=== PATIENT | male | born 1945 | race Hispanic/Latino ===

== ENCOUNTER 2018-02-01 20:40 | Observation (INO) | payer MEDICARE ==
[2018-02-01] MEDS ORDERED: hydrALAZINE 20 MG/ML VIAL ONE (21:39)
[2018-02-01 21:57] LABS: ALT (SGPT) 9 U/L (8-55); AST (SGOT) 21 U/L (5-34); Albumin 3.4 g/dL (3.4-4.8); Alkaline Phosphatase 85 U/L (40-150); Anion Gap 11 mmol/L (10-20); BUN (Urea Nitrogen) 4 mg/dL (8.4-25.7); Bilirubin, Total 0.5 mg/dL (0.2-1.2); Calc. Creatinine Clearance 0 mL/min (70-130); Calcium 8.2 mg/dL (7.8-10.44); Carbon Dioxide 31 mmol/L (23-31); Chloride 98 mmol/L (98-107); Estimated GFR-MDRD 33; Globulin 3.2 g/dL (2.4-3.5); Glucose 129 mg/dL (83-110); Potassium 3.2 mmol/L (3.5-5.1); Protein, Total 6.6 g/dL (5.8-8.1); Sodium 137 mmol/L (136-145)
[2018-02-01 21:58] LABS: #Eosinphils 0.2 thou/uL (0.0-0.7); #Lymphocytes 0.7 thou/uL (1.20-3.40); #Monocytes 0.4 thou/uL (0.11-0.59); #Neutrophils 3.3 thou/uL (1.40-6.50); %Eosinophils 3.4 % (0.0-10.0); %Lymphocytes 15.4 % (21.0-51.0); %Monocytes 8.9 % (0.0-10.0); %Neutrophils 71.2 % (42.0-75.0); Mean Corpuscular HGB CONC 33.4 g/dL (32.0-36.0); Mean Corpuscular Hemoglobin 32.5 pg (27.0-31.0); Mean Corpuscular Volume 97.4 fL (78.0-98.0); Mean Platelet Volume 9.7 fL (7.4-10.4); PLT Morphology Comment Appears Decreased; Platelet Count 56 thou/uL (130-400); RBC Distribution Width 12.9 % (11.5-14.5); RBC Morphology Normal; Red Blood Cell (RBC) Count 3.06 mill/uL (4.70-6.10); White Blood Cell (WBC) Count 4.7 thou/uL (4.8-10.8)
[2018-02-01] MEDS ORDERED: Labetalol HCl 100 MG/20 ML VIAL ONE (22:23)
--- NOTE | 2018-02-01 23:09 | RAD ---
SINGLE VIEW OF THE CHEST: 02/01/18 COMPARISON: 08/08/16 HISTORY: High blood pressure and altered mental status. FINDINGS: Single view of the chest shows an enlarged but stable cardiomediastinal silhouette. There is a right sided dialysis catheter with its tip in the superior vena cava. There is no evidence of consolidation , mass, or pleural effusion. Degenerative changes are seen in the spine. IMPRESSION: No evidence of acute cardiopulmonary disease. POS: [facility]
[2018-02-01 23:14] LABS: CKMB 1.4 ng/mL (0-6.6); Troponin I 0.039 ng/mL (< 0.028)
--- NOTE | 2018-02-01 23:14 | CT ---
CT OF THE BRAIN WITHOUT CONTRAST: 02/01/18 COMPARISON: 11/28/16 HISTORY: High blood pressure for the last two days and altered mental status. TECHNIQUE: Multiple contiguous axial images were obtained in a CT of the brain without contrast. FINDINGS: There are diffuse scattered hypodensities in the subcortical and periventricular white matter, likely secondary to small vessel ischemic disease. Calcifications are seen in the basal ganglia. There is n o evidence of hydrocephalus, intracranial hemorrhage or extra-axial fluid collection. The calvarium and overlying soft tissues are unremarkable. The visualized paranasal sinuses and masto id air cells are well aerated. IMPRESSION: Small vessel ischemic disease without acute intracranial abnormality. POS: [facility]
[2018-02-01] MEDS ORDERED: Nitroglycerin 2% Ointment 1 INCH/1 GM Packet ONE (23:17)
[2018-02-02] MEDS ORDERED: cloNIDine 0.1 MG TAB ONE (00:26)
[2018-02-02] MEDS ORDERED: hydrALAZINE 20 MG/ML VIAL ONE (01:12)
[2018-02-02] MEDS ORDERED: Acetaminophen 325 MG TAB PO PRN ×2 (01:45→07:49)
[2018-02-02] MEDS ORDERED: Ondansetron HCl/PF 4 MG/2 ML Vial IVP PRN ×2 (01:45→07:49)
[2018-02-02] MEDS ORDERED: Ondansetron ODT 4 MG TAB SL PRN (01:45)
[2018-02-02] MEDS ORDERED: cloNIDine 0.1 MG TAB PO PRN (01:52)
[2018-02-02] MEDS ORDERED: hydrALAZINE 20 MG/ML VIAL SLOW IVP PRN (01:52)
[2018-02-02 02:01] VITALS: BMI 24.7
[2018-02-02] MEDS ORDERED: traMADol HCl 50 MG TAB PO PRN ×2 (03:42→07:49)
[2018-02-02] MEDS ORDERED: Nitroglycerin 0.4 MG TAB (25 Tab Bottle) SL PRN (07:49)
[2018-02-02] MEDS ORDERED: Zolpidem Tartrate 5 MG TAB PO PRN (07:49)
[2018-02-02] MEDS ORDERED: Sodium Chloride 0.65% Nasal 44 ML BOT EA NARE PRN (07:49)
[2018-02-02] MEDS ORDERED: Senokot 8.6 MG TAB PO PRN (07:49)
[2018-02-02] MEDS ORDERED: Labetalol HCl 100 MG/20 ML VIAL SLOW IVP PRN (07:49)
[2018-02-02] MEDS ORDERED: Artificial Tears 18 DROP/0.9 ML EA EYE PRN (07:49)
[2018-02-02] MEDS ORDERED: Loratadine 10 MG TAB PO PRN (07:49)
[2018-02-02] MEDS ORDERED: Eucerin (Mineral Oil/Petrolatum,White) 30 gm Jar TOP PRN (07:49)
[2018-02-02] MEDS ORDERED: Chloraseptic Spray 180 ml Bottle PO PRN (07:49)
[2018-02-02] MEDS ORDERED: Mag-Al 1200 mg/1200 mg/30 ML UDCUP PO PRN (07:49)
[2018-02-02] MEDS ORDERED: HYDROcodone/Acetaminophen 5/325 mg Tablet PO PRN (07:49)
[2018-02-02] MEDS ORDERED: Ondansetron ODT 4 MG TAB PO PRN (07:49)
[2018-02-02] MEDS ORDERED: Diabetic Tussin 200 MG/10 ML UDCUP PO PRN (07:49)
[2018-02-02] MEDS ORDERED: Milk Of Magnesia 30 ML UDCUP PO PRN (07:49)
[2018-02-02] MEDS ORDERED: Loperamide HCl 2 MG CAP PO PRN (07:49)
[2018-02-02] MEDS ORDERED: Prevnar 13-Val Conj/PF 0.5 ML SYRINGE IM ONE (09:00)
[2018-02-02 09:19] LABS: CKMB 1.4 ng/mL (0-6.6); Troponin I 0.023 ng/mL (< 0.028)
[2018-02-02] MEDS: FLUoxetine HCl 10 MG CAP PO SCH (09:26)
[2018-02-02] MEDS: Carvedilol 6.25 MG TAB PO SCH ×2 (09:27→20:25)
[2018-02-02] MEDS: Bupropion 150 MG XL TAB PO SCH (09:27)
[2018-02-02] MEDS: NIFEdipine XL 30 MG TAB PO SCH ×2 (09:29→20:25)
[2018-02-02] MEDS ORDERED: Potassium Chloride 20 MEQ TAB PO SCH (10:45)
[2018-02-02] MEDS: cloNIDine 0.1 MG TAB PO PRN ×2 (11:56→16:45)
[2018-02-02] MEDS: hydrALAZINE 20 MG/ML VIAL SLOW IVP PRN ×2 (12:55→16:45)
[2018-02-02 12:58] LABS: CKMB 1.3 ng/mL (0-6.6); Troponin I 0.018 ng/mL (< 0.028)
--- NOTE | 2018-02-02 13:53 | HP ---
PRIMARY CARE PHYSICIAN: Dr. Pravin Alcantar. PRIMARY SOFTWARE ENGINEER BACKEND: Dr. Cisneros. REASON FOR ADMISSION: Hypertensive urgency. HISTORY OF PRESENT ILLNESS: A 72-year-old male who was recently started on hemodialysis for ESRD. He was sent from dialysis center for uncontrolled blood pressure. Patient reports that he had dialysis yesterday. He has Sunday, Sunday, Sunday dialysis. On , he did not take his blood pressure medicine. His blood pressure was very high at dialysis center. He was having headache. He denied any chest pain, palpitation. Patient was feeling subjectively disoriented for about 1 week. His highest blood pressure recorded in the emergency room was 213/137. Patient was having throbbing headache in his brain. The patient also reports that his blood pressure is normally not well controlled. In the emergency room, this patient had a CT brain which was negative for any acute intracranial process. Chest x-ray was also normal. His routine blood test was unremarkable. The patient reports that he has history of heavy alcohol abuse up until 2 weeks ago when he stopped drinking. He denies any alcohol withdrawal symptoms. He denies any chest pain , palpitation, syncope. He denies any focal motor or sensory symptoms. He denies any unsteadiness. He denies any fall or trauma. He denies any UTI symptoms. He denies any constipation, diarrhea, melena or hematochezia. REVIEW OF SYSTEMS: The following complete review of systems was negative, unless otherwise mentioned in the HPI or below: Constitutional: Weight loss or gain, ability to conduct usual activities. Skin: Rash, itching. Eyes: Double vision, pain. ENT/Mouth: Nose bleeding, neck stiffness, pain, tenderness. Cardiovascular: Palpitations, dyspnea on exertion, orthopnea. Respiratory: Shortness of breath, wheezing, cough, hemoptysis, fever or night sweats. Gastrointestinal: Poor appetite, abdominal pain, heartburn, nausea, vomiting, constipation, or diarrhea. Genitourinary: Urgency, frequency, dysuria, nocturia. Musculoskeletal: Pain, swelling. Neurologic/Psychiatric: Anxiety, depression. Allergy/Immunologic: Skin rash, bleeding tendency. Please see my HPI for pertinent positive and negative. All other review of system reviewed and negative except as mentioned in the HPI. PAST MEDICAL HISTORY: Hypertension, dyslipidemia, peptic ulcer disease, coronary artery disease, obesity, end-stage renal disease on hemodialysis. PAST PSYCHIATRIC HISTORY: Anxiety and depression. PAST SURGICAL HISTORY: Cardiac catheterization with stent placement, lumbar spine surgery, right shoulder rotator cuff repair x2, left shoulder rotator cuff repair, laparotomy for stomach perforation presumed from peptic ulcer disease. SOCIAL HISTORY: The patient was drinking beer almost every day basis, up until 2 weeks ago. He denies any smoking. He denies any other illicit drug abuse. FAMILY HISTORY: One brother diagnosed with liver cancer, mother diagnosed with heart disease and she from heart related problem. Father had diabetes. ALLERGIES: No known drug allergy. CURRENT HOME MEDICATIONS: Lipitor 80 mg p.o. daily, bupropion XL 300 mg p.o. daily, Coreg 12.5 mg p.o. b.i.d., Prozac 30 mg p.o. daily, Procardia-XL 30 mg p.o. b.i.d., Zofran 4 mg b.i.d. p.r.n., tramadol 50 mg t.i.d. p.r.n., trazodone 100 mg p.o. at bedtime. EMERGENCY ROOM COURSE: Patient is given hydralazine 20 mg, clonidine 0.1 mg, nitropatch, labetalol 20 mg, and another dose of hydralazine 20 mg. PHYSICAL EXAMINATION: VITAL SIGNS: In the emergency room, blood pressure 215/137, pulse 76, respiratory rate 16, temperature 98.2, saturation 99% on room air, weight 69.8 kilograms. GENERAL: Patient is currently alert, awake, in no obvious acute distress. HEENT: Head: Normocephalic, atraumatic. Eyes: Pupils round, reactive to light. Extraocular muscle intact. ENT: Oropharynx within normal limits. Moist mucous membranes. No oral lesions, no pharyngeal erythema, no exudate. NECK: Supple, no JVD, no thyromegaly, no carotid bruit, no jugular venous distention. LUNGS: Clear to auscultation without any rhonchi or rales. CARDIAC: S1, S2 regular without any murmur. ABDOMEN: Soft, bowel sounds present, nontender, nondistended. No organomegaly , no mass, no suprapubic tenderness. BACK: Unremarkable, no CVA tenderness. EXTREMITIES: Upper extremity, passive movement of all joints are normal. Lower extremity, no edema. Good peripheral pulsation. SKIN: No skin rash. HEMATOLOGICAL: No lymphadenopathy. PSYCHIATRIC: Normal affect. NEUROLOGIC: The patient is alert, oriented x3. Cranial nerves II through XII intact. Motor and sensation within normal limits. No focal neurological deficit noted. IMAGING: EKG showing LVH, prolonged QT and nonspecific ST-T changes. CT brain based on my review, small vessel ischemic changes, but no acute process. Chest x-ray based on my review, cardiomegaly, chronic changes. SIGNIFICANT LABORATORY RESULTS: WBC 4.7, hemoglobin 10.0, platelet of 56. BMP shows sodium 137, potassium 3.2, chloride 98, carbon dioxide 31, BUN 4, creatinine of , glucose 129, calcium 8.2, magnesium 2.0. LFT: AST 21, ALT 9, alkaline phosphatase 85, albumin 3.4, CK 465, CK-MB 1.4, troponin 0.039 and then 0.023. ASSESSMENT AND PLAN: 1. Hypertensive urgency. The patient's clinical presentation is consistent with hypertensive urgency, most likely precipitated by noncompliance with the treatment. At this point, patient will be observed on telemetry floor. We will monitor the patient's blood pressure more frequently and adjust blood pressure accordingly. Patient is given counseling to be compliant with the treatment. We will continue his home medication, Coreg 12.5 mg p.o. b.i.d., Procardia 30 mg p.o. b.i.d. and will use clonidine, hydralazine and labetalol p.r.n. basis. 2. Hypokalemia. We will give potassium chloride 20 mEq p.o. one time dose. 3. Pancytopenia, likely related with his alcohol abuse history, but will continue folic acid and vitamin B12. 4. Anemia of renal disease. The patient will continue Procrit as needed basis. 5. End-stage renal disease on hemodialysis. Patient is on Sunday, Sunday, Sunday hemodialysis. Patient's control clerk food and beverage is Dr. Cisneros at [facility]. We are expecting discharge tomorrow. At this point, no need of Nephrology consultation. Patient will continue his hemodialysis after discharge. 6. Elevated troponin. We will do serial cardiac enzymes x3 to rule out acute coronary syndrome, likely elevated troponin related with end-stage renal disease and hypertensive urgency. 7. Anxiety and depression. We will continue bupropion 300 mg p.o. daily, Prozac 30 mg p.o. daily, trazodone 100 mg p.o. at bedtime. 8. Dyslipidemia. We will continue Lipitor 80 mg p.o. at bedtime. 9. Deep venous thrombosis prophylaxis not needed because we are expecting discharge in 24 hours. 10. Gastrointestinal prophylaxis, Protonix 40 mg p.o. daily. CODE STATUS: The patient is FULL CODE. The patient does not have any surrogate decision maker. Disposition plan based on clinical course, likely within 24 hours. Plan of care discussed with the patient in detail. MTDD
[2018-02-02] MEDS ORDERED: traZODone HCl 50 MG TAB PO SCH (21:00)
[2018-02-02] MEDS ORDERED: Atorvastatin Calcium 40 MG TAB PO SCH (21:00)
[2018-02-03 04:43] LABS: #Eosinphils 0.1 thou/uL (0.0-0.7); #Monocytes 0.5 thou/uL (0.11-0.59); %Basophils 0.4 % (0.0-1.0); %Eosinophils 3.2 % (0.0-10.0); %Lymphocytes 21.4 % (21.0-51.0); %Monocytes 9.9 % (0.0-10.0); %Neutrophils 65.1 % (42.0-75.0); Hemoglobin 8.5 g/dL (14.0-18.0); Mean Corpuscular Hemoglobin 33.8 pg (27.0-31.0); Mean Corpuscular Volume 99.5 fL (78.0-98.0); Mean Platelet Volume 9.2 fL (7.4-10.4); Platelet Count 58 thou/uL (130-400); RBC Distribution Width 12.9 % (11.5-14.5); Red Blood Cell (RBC) Count 2.51 mill/uL (4.70-6.10); White Blood Cell (WBC) Count 4.6 thou/uL (4.8-10.8)
[2018-02-03 04:55] LABS: ALT (SGPT) Less than 7 U/L (8-55); AST (SGOT) 10 U/L (5-34); Albumin 2.8 g/dL (3.4-4.8); Alkaline Phosphatase 69 U/L (40-150); Anion Gap 6 mmol/L (10-20); BUN (Urea Nitrogen) 14 mg/dL (8.4-25.7); Bilirubin, Total 0.3 mg/dL (0.2-1.2); Calc. Creatinine Clearance 14 mL/min (70-130); Carbon Dioxide 35 mmol/L (23-31); Chloride 98 mmol/L (98-107); Estimated GFR-MDRD 13; Globulin 2.4 g/dL (2.4-3.5); Glucose 88 mg/dL (83-110); Potassium 3.2 mmol/L (3.5-5.1); Protein, Total 5.2 g/dL (5.8-8.1); Sodium 136 mmol/L (136-145)
[2018-02-03] MEDS ORDERED: Potassium Chloride 20 MEQ TAB PO SCH (06:45)
[2018-02-03 08:12] VITALS: BP 157/74; TEMP 98.2
[2018-02-03] MEDS: Carvedilol 6.25 MG TAB PO SCH (08:28)
[2018-02-03] MEDS: Bupropion 150 MG XL TAB PO SCH (08:28)
[2018-02-03] MEDS: FLUoxetine HCl 10 MG CAP PO SCH (08:29)
[2018-02-03] MEDS: NIFEdipine XL 30 MG TAB PO SCH (08:29)
--- NOTE | 2018-02-03 08:44 | PDOC.PN ---
- Subjective Encounter Start Date: 02/03/18 Encounter Start Time: 07:05 -: old records requested/rev Patient seen and examined. No new complaints. No overnight events - Objective Resuscitation Status: Resuscitation Status FULL:Full Resuscitation MAR Reviewed: Yes Vital Signs & Weight: Vital Signs (12 hours) Temp Pulse Resp BP BP Pulse Ox 02/03/18 08:29 66 157/74 H 02/03/18 08:28 157/74 H 02/03/18 07:40 98.2 F 66 18 157/74 H 98 02/03/18 02:58 98.1 F 66 18 165/80 H 96 02/02/18 23:31 67 167/81 H 02/02/18 20:44 149/107 H Weight Weight 153 lb 9.6 oz I&O: 02/02/18 02/03/18 02/04/18 06:59 06:59 06:59 Intake Total 360 1000 Output Total 300 Balance 360 700 Result Diagrams: 02/03/18 04:04 02/03/18 04:03 Radiology Reviewed by me: Yes (echo normal) EKG Reviewed by me: Yes (nsr) Phys Exam - Physical Examination Constitutional: NAD HEENT: PERRLA, moist MMs, sclera anicteric Neck: no JVD, supple Respiratory: no wheezing, no rales, no rhonchi Cardiovascular: RRR, no rub SM+ Gastrointestinal: soft, non-tender, no distention, positive bowel sounds Musculoskeletal: no edema, pulses present Neurological: non-focal, normal sensation, moves all 4 limbs Psychiatric: normal affect, A&O x 3 Skin: no rash, normal turgor Dx/Plan (1) Hypertensive urgency Code(s): I16.0 - HYPERTENSIVE URGENCY Status: Acute (2) Anxiety and depression Code(s): F41.9 - ANXIETY DISORDER, UNSPECIFIED; F32.9 - MAJOR DEPRESSIVE DISORDER, SINGLE EPISODE, UNSPECIFIED Status: Chronic (3) ESRD (end stage renal disease) on dialysis Code(s): N18.6 - END STAGE RENAL DISEASE; Z99.2 - DEPENDENCE ON RENAL DIALYSIS Status: Chronic (4) H/O alcohol abuse Code(s): Z87.898 - PERSONAL HISTORY OF OTHER SPECIFIED CONDITIONS Status: Chronic (5) Pancytopenia Code(s): D61.818 - OTHER PANCYTOPENIA Status: Chronic (6) Thrombocytopenia Code(s): D69.6 - THROMBOCYTOPENIA, UNSPECIFIED Status: Chronic - Plan cont current plan of care, plan discussed w/ family * stable for discharge * medication reviewed as below * symptomatic treatment * HD-MWF * advised about compliance with treatment * avoid alcohol. Review of Systems - Review of Systems Constitutional: negative: fever, chills, sweats, weakness, malaise, other ENT: negative: Ear Pain, Ear Discharge, Nose Pain, Nose Discharge, Nose Congestion, Mouth Pain, Mouth Swelling, Throat Pain, Throat Swelling, Other Respiratory: negative: Cough, Dry, Shortness of Breath, Hemoptysis, SOB with Excertion, Pleuritic Pain, Sputum, Wheezing Cardiovascular: negative: chest pain, palpitations, orthopnea, paroxysmal nocturnal dyspnea, edema, light headedness, other Gastrointestinal: negative: Nausea, Vomiting, Abdominal Pain, Diarrhea, Constipation, Melena, Hematochezia, Other Genitourinary: negative: Dysuria, Frequency, Incontinence, Hematuria, Retention , Other Musculoskeletal: negative: Neck Pain, Shoulder Pain, Arm Pain, Back Pain, Hand Pain, Leg Pain, Foot Pain, Other Skin: negative: Rash, Lesions, [place], Bruising, Other Neurological: negative: Weakness, Numbness, Incoordination, Change in Speech, Confusion, Seizures, Other - Medications/Allergies Allergies/Adverse Reactions: Allergies Allergy/AdvReac Type Severity Reaction Status Date / Time No Known Allergies Allergy Verified 02/02/18 02:04 Medications: Current Medications Acetaminophen (Tylenol) 650 mg PO Q4H PRN PRN Reason: Headache/Fever or Pain Hydrocodone Bitart/Acetaminophen ([place] 5/325) 1 tab PO Q4H PRN PRN Reason: Moderate Pain (4-6) Last Admin: 02/02/18 15:48 Dose: 1 tab Al Hydroxide/Mg Hydroxide (Maalox) 30 ml PO Q6H PRN PRN Reason: Heartburn or Indigestion Artificial Tears (Tears Naturale) 0 drop EA EYE PRN PRN PRN Reason: Dry Eyes Last Admin: 02/02/18 10:00 Dose: 1 drop Atorvastatin Calcium (Lipitor) 80 mg PO HS [facility] Last Admin: 02/02/18 20:24 Dose: 80 mg Bupropion HCl (Wellbutrin Xl) 300 mg PO DAILY [facility] Last Admin: 02/03/18 08:28 Dose: 300 mg Carvedilol (Coreg) 12.5 mg PO BID [facility] Last Admin: 02/03/18 08:28 Dose: 12.5 mg Clonidine (Catapres) 0.1 mg PO Q4H PRN PRN Reason: Systolic BP > 180 Last Admin: 02/02/18 16:45 Dose: 0.1 mg Cyanocobalamin (Vitamin B-12) 1,000 mcg PO DAILY [facility] Last Admin: 02/03/18 08:29 Dose: 1,000 mcg Fluoxetine HCl (Prozac) 30 mg PO DAILY [facility] Last Admin: 02/03/18 08:29 Dose: 30 mg Folic Acid (Folvite) 1 mg PO DAILY [facility] Last Admin: 02/03/18 08:29 Dose: 1 mg Guaifenesin (Robitussin Sf) 200 mg PO Q4H PRN PRN Reason: Cough Hydralazine HCl (Apresoline) 10 mg SLOW IVP Q4H PRN PRN Reason: Systolic BP > 180 Last Admin: 02/02/18 16:45 Dose: 10 mg Labetalol HCl (Normodyne) 20 mg SLOW IVP Q4H PRN PRN Reason: Systolic BP > 180 Loperamide HCl (Imodium) 2 mg PO PRN PRN PRN Reason: Diarrhea/Loose Stools Loratadine (Claritin) 10 mg PO DAILYPRN PRN PRN Reason: Sinus Symptoms Magnesium Hydroxide (Milk Of Magnesium) 30 ml PO DAILYPRN PRN PRN Reason: Constipation Last Admin: 02/02/18 10:00 Dose: 30 ml Mineral Oil/White Petrolatum (Eucerin Cream) 0 gm TOP BIDPRN PRN PRN Reason: Dry Skin Nifedipine (Procardia Xl) 30 mg PO BID [facility] Last Admin: 02/03/18 08:29 Dose: 30 mg Nitroglycerin (Nitrostat) 0.4 mg SL Q5MIN PRN PRN Reason: Chest Pain Ondansetron HCl (Zofran Odt) 4 mg PO Q6H PRN PRN Reason: Nausea/Vomiting Last Admin: 02/02/18 15:49 Dose: 4 mg Ondansetron HCl (Zofran) 4 mg IVP Q6H PRN PRN Reason: Nausea/Vomiting Pantoprazole Sodium (Protonix) 40 mg PO DAILY [facility] Last Admin: 02/03/18 08:29 Dose: 40 mg Phenol (Chloraseptic [place] 180 Ml Bot) 0 ml PO PRN PRN PRN Reason: Sore Throat Potassium Chloride (K-Dur) 20 meq PO 0645 [facility] Stop: 02/03/18 08:45 Last Admin: 02/03/18 07:24 Dose: 20 meq Senna (Senokot) 2 tab PO HSPRN PRN PRN Reason: Constipation Sodium Chloride ([place] Nasal [place] 0.65%) 0 ml EA NARE QIDPRN PRN PRN Reason: Nasal Congestion Tramadol HCl (Ultram) 50 mg PO TIDPRN PRN PRN Reason: Moderate to Severe Pain (6-10) Trazodone HCl (Desyrel) 100 mg PO [facility] Last Admin: 02/02/18 20:24 Dose: 100 mg Zolpidem Tartrate (Ambien) 5 mg PO HSPRN PRN PRN Reason: Insomnia
[2018-02-03] MEDS ORDERED: Cyanocobalamin (Vitamin B-12) 1,000 MCG TAB PO SCH (09:00)
[2018-02-03] MEDS ORDERED: Folic Acid 1 MG TAB PO SCH (09:00)
--- NOTE | 2018-02-03 10:36 | DIS ---
PRIMARY CARE PHYSICIAN: Dr. Tayo Muller. DATE OF ADMISSION: 02/01/2018 DATE OF DISCHARGE: 02/03/2018 DISCHARGE DISPOSITION: Home. PRIMARY DISCHARGE DIAGNOSIS: Hypertensive urgency due to medication noncompliance. SECONDARY DISCHARGE DIAGNOSES: Anxiety and depression, end-stage renal disease on hemodialysis, hist ory of alcohol abuse, pancytopenia due to alcohol, and thrombocytopenia. PRIMARY PROCEDURE/OPERATION: None. RADIOLOGICAL INVESTIGATION: CT brain on admission showed no acute intracranial process, small vessel ischemic changes. Chest x-ray was normal. Echocardiography showed mild aortic stenosis, normal EF, diastolic dysfunction. SIGNIFICANT LABORATORY DATA: WBC 4.6, hemoglobin 8.5, platelets 58. Sodium 136, potassium 3.2, BUN 14, creatinine 4.55. LFT normal. Cardiac enzymes negative. Albumin 2.8. DISCHARGE MEDICATIONS: Patient will continue his previous medications, Lipitor 80 mg p.o. daily, bup ropion XL 300 mg p.o. daily, Coreg 12.5 mg p.o. b.i.d., Prozac 30 mg p.o. daily, Procardia XL 30 mg p .o. b.i.d., Zofran ODT 4 mg b.i.d. p.r.n., tramadol 50 mg t.i.d. p.r.n., and trazodone 100 mg p.o. at bedtime. CONTRAINDICATIONS: None. CODE STATUS: FULL CODE. INPATIENT CONSULTANTS: None. ALLERGIES: No known drug allergy. DISCHARGE PLAN: Post hospital, the patient will make appointment with primary care physician in we . The patient will maintain his hemodialysis on Sunday, Sunday, and Sunday. HOSPITAL COURSE: A 72-year-old male who with above-mentioned medical problem, who was at dialysis an d over there his blood pressure was very high. He did not take blood pressure medication even before dialysis and that is why his blood pressure was very high. He was sent to emergency room for evalua tion. While he was in hospital, he was completely asymptomatic. We started his home medication and his blood pressure remained controlled. He had murmur and that is why we did echocardiography, which showed mild aortic stenosis. His troponin was only one time elevated. Subsequently, it was negativ e, it was related with demand ischemia. His potassium was low, which was replaced. He was completel y asymptomatic. Today we are discharging this patient home. We are not making any changes in his home medication. T he patient is seen and examined at bedside today. Please see my progress note from today for further detail.
== END 2018-02-03 08:45 | disposition home or self-care (01) ==
LOC: ERS 20:40 → 2SW 23:10
PROVIDERS: ADMIT Hospitalist; ATTEND Hospitalist
DX: I16.0 Hypertensive urgency (principal); I12.0 Hypertensive chronic kidney disease with stage 5 chronic kidney disease or end stage renal disease; N18.6 End stage renal disease; D63.1 Anemia in chronic kidney disease; R79.89 Other specified abnormal findings of blood chemistry; E78.5 Hyperlipidemia, unspecified; I25.10 Atherosclerotic heart disease of native coronary artery without angina pectoris; D61.818 Other pancytopenia; E87.6 Hypokalemia; F41.8 Other specified anxiety disorders; Z99.2 Dependence on renal dialysis; Z91.14 Patient's other noncompliance with medication regimen; Z79.899 Other long term (current) drug therapy
CPT/HCPCS: 70450; 71045; 80053 ×2; 82550; 82553 ×3; 83735; 84484 ×3; 85025 ×2; 93005; 93306; 96374; 96375; 96376 ×2; 99285; G0378; 36415; 90471; 90670; G0009; J0360; Q0162

== ENCOUNTER 2018-02-11 11:31 | Emergency (ER) | payer MEDICARE ==
[2018-02-11 12:12] LABS: #Eosinphils 0.1 thou/uL (0.0-0.7); #Lymphocytes 1.6 thou/uL (1.20-3.40); #Monocytes 0.4 thou/uL (0.11-0.59); #Neutrophils 1.9 thou/uL (1.40-6.50); %Basophils 0.8 % (0.0-1.0); %Eosinophils 3.6 % (0.0-10.0); %Lymphocytes 39.6 % (21.0-51.0); Hemoglobin 13.9 g/dL (14.0-18.0); Mean Corpuscular HGB CONC 34.7 g/dL (32.0-36.0); Mean Corpuscular Hemoglobin 33.8 pg (27.0-31.0); Mean Corpuscular Volume 97.4 fL (78.0-98.0); Mean Platelet Volume 7.9 fL (7.4-10.4); Platelet Count 127 thou/uL (130-400); RBC Distribution Width 11.2 % (11.5-14.5); Red Blood Cell (RBC) Count 4.11 mill/uL (4.70-6.10)
[2018-02-11 12:35] LABS: ALT (SGPT) 29 U/L (8-55); AST (SGOT) 25 U/L (5-34); Alkaline Phosphatase 87 U/L (40-150); Anion Gap 12 mmol/L (10-20); BUN (Urea Nitrogen) 11 mg/dL (8.4-25.7); Bilirubin, Total 0.9 mg/dL (0.2-1.2); Calc. Creatinine Clearance 0 mL/min (70-130); Calcium 9.7 mg/dL (7.8-10.44); Carbon Dioxide 25 mmol/L (23-31); Chloride 108 mmol/L (98-107); Estimated GFR-MDRD Greater than 90; Globulin 3.4 g/dL (2.4-3.5); Glucose 102 mg/dL (83-110); Potassium 4.2 mmol/L (3.5-5.1); Protein, Total 7.4 g/dL (5.8-8.1); Sodium 141 mmol/L (136-145)
--- NOTE | 2018-02-11 15:18 | CT ---
CT OF THE BRAIN WITHOUT CONTRAST: Comparison: 02-01-18 History: Fell and hit head. Head trauma. Technique: Multiple contiguous axial images were obtained in a CT of the brain without contrast. FINDINGS: There are scattered hypodensities in the subcortical and periventricular white matter, likely seconda ry to small vessel ischemic disease. No large confluent infarction is seen. There is no evidence of h ydrocephalus, intracranial hemorrhage, or extraaxial fluid collection. The calvarium and overlying soft tissues are unremarkable. The visualized paranasal sinuses and masto id air cells are well aerated. IMPRESSION: No evidence of acute intracranial abnormality. POS: [facility]
--- NOTE | 2018-02-11 15:30 | CT ---
CT OF THE CERVICAL SPINE WITHOUT CONTRAST: Comparison: 12-02-16 History: Fall and hit head with neck pain. Technique: Multiple contiguous axial images were obtained in a CT of the cervical spine without contr ast. Sagittal and coronal reformats were performed. FINDINGS: There are moderate degenerative changes in the lower cervical spine. Vertebral bodies demonstrate nor mal height and alignment without acute fracture or subluxation. No prevertebral soft tissue swelling is seen. The posterior facets are well aligned. Normal alignment of the skull base with the cervical spine is seen. IMPRESSION: 1. Degenerative changes of the cervical spine without acute osseous abnormality. POS: [facility]
[2018-02-11] MEDS ORDERED: Bacitracin Zinc 1 Packet ONE (15:43)
== END 2018-02-11 15:44 | disposition home or self-care (01) ==
LOC: ERS 11:31
DX: S09.90XA Unspecified injury of head, initial encounter (principal); S50.812A Abrasion of left forearm, initial encounter; S60.222A Contusion of left hand, initial encounter; S60.221A Contusion of right hand, initial encounter; E78.5 Hyperlipidemia, unspecified; I10 Essential (primary) hypertension; Z99.2 Dependence on renal dialysis; F41.9 Anxiety disorder, unspecified; F32.9 Major depressive disorder, single episode, unspecified; Z79.899 Other long term (current) drug therapy; W19.XXXA Unspecified fall, initial encounter
CPT/HCPCS: 70450; 72125; 80053; 85025; 93005

== ENCOUNTER 2018-08-19 16:36 | Emergency (ER) | payer MEDICARE ==
[2018-08-19] MEDS ORDERED: HYDROcodone/Acetaminophen 5/325 mg Tablet ONE (18:18)
[2018-08-19] MEDS ORDERED: Acetaminophen 500 MG TAB ONE (18:38)
--- NOTE | 2018-08-19 18:50 | CT ---
HEAD CT WITHOUT CONTRAST: 08/19/18 COMPARISON: 02/11/18. HISTORY: Fall, trauma, pain. TECHNIQUE: Axial CT imaging obtained at 5 mm intervals from vertex through skull base without contrast. FINDINGS: The imaged paranasal sinuses/mastoid air cells are well aerated. No displaced calvarial fracture. The re is moderate cerebral volume loss with associated prominence of the CSF containing spaces. Perivent ricular, deep, and subcortical white matter hypodensity noted, evidence of small vessel disease. No i ntracranial hemorrhage, midline shift, mass effect, or ventricular enlargement. IMPRESSION: Chronic findings as detailed above. No acute findings. POS: [facility]
--- NOTE | 2018-08-19 18:56 | RAD ---
RIGHT SHOULDER THREE VIEWS: 08/19/18 COMPARISON: None. HISTORY: Fall, trauma, pain. FINDINGS: Incompletely imaged right sided dialysis catheter present. Mild widening of the right AC joint noted, nonspecific. Elevation of right humeral head noted, suggesting underlying rotator cuff tear. No acut e fracture or dislocation. IMPRESSION: No displaced fracture or dislocation. Widened right AC joint may signify remote trauma, AC joint inju ry, and/or prior surgical change. This is a stable finding when compared to prior chest x-ray perform ed 02/01/18. POS: [facility]
--- NOTE | 2018-08-19 19:00 | CT ---
CERVICAL SPINE CT WITHOUT CONTRAST: 08/19/18 COMPARISON: 02/11/18. HISTORY: Injury, trauma, pain. TECHNIQUE: Axial CT imaging at 2.5 mm intervals with coronal and sagittal reformatted imaging. FINDINGS: The C1 ring is intact. The occipital condyles, the dense, and the C1-2 articulation demonstrate no acute findings. There is multilevel lateral osteophyte formation, most prominent on the right at C5-6 and on the left at C6-7. Posterior osteophyte formation noted at C6-7 with probable associated central canal stenosis. The im aged lung apices are grossly unremarkable. There is prominent degenerative change at the atlanto-axial interspace. Probable disc bulge at C3-4 a nd C4-5. No prevertebral soft tissue swelling, displaced fracture or evidence of dislocation. Multile darcy mid cervical spine central canal and neural foraminal stenosis noted, not well characterized on t his exam. IMPRESSION: Stable cervical spine degenerative change when compared to 02/11/18. No acute fracture or dislocation is evident. POS: [facility]
== END 2018-08-19 18:43 | disposition home or self-care (01) ==
LOC: ERS 16:36
DX: S43.401A Unspecified sprain of right shoulder joint, initial encounter (principal); S05.12XA Contusion of eyeball and orbital tissues, left eye, initial encounter; E78.5 Hyperlipidemia, unspecified; I10 Essential (primary) hypertension; F32.9 Major depressive disorder, single episode, unspecified; F41.9 Anxiety disorder, unspecified; Z79.899 Other long term (current) drug therapy; W17.89XA Other fall from one level to another, initial encounter
CPT/HCPCS: 70450; 72125

== ENCOUNTER 2018-12-16 17:31 | Inpatient (IN) | payer MEDICARE ==
[2018-12-16 18:36] LABS: Hemoglobin 12.1 g/dL (14.0-18.0); Mean Corpuscular HGB CONC 33.5 g/dL (32.0-36.0); Mean Corpuscular Hemoglobin 33.1 pg (27.0-31.0); Mean Corpuscular Volume 98.7 fL (78.0-98.0); RBC Distribution Width 13.6 % (11.5-14.5); Red Blood Cell (RBC) Count 3.66 mill/uL (4.70-6.10); White Blood Cell (WBC) Count 6.7 thou/uL (4.8-10.8)
[2018-12-16 18:37] LABS: Bilirubin Negative (Negative); Blood, Urine Small (Negative); Clarity CLEAR (Clear); Glucose, Urine (Dipstick) 100 mg/dL (Negative); Leukocyte Trace (Negative); Nitrite Negative (Negative); Protein, Urine (Dipstick) 300 mg/dL (Neg-Trace); Specific Gravity, Urine 1.011 (1.002-1.036); Urobilinogen 0.2 mg/dL (0.2-1.0)
[2018-12-16 18:39] LABS: Bacteria/HPF None Seen HPF (None Seen); Hyaline Casts/LPF 0-3 HYALINE CAST LPF (0-3 Hyaline); RBC/HPF 0-3 HPF (0-3); Squamous Epithelial None Seen HPF (0-3); WBC/HPF 21-50 HPF (0-3)
[2018-12-16 18:41] LABS: Amphetamine Not Detected (NotDetected); Barbiturates Screen Not Detected (NotDetected); Benzodiazepine Screen Detected (NotDetected); Cocaine Metabolite Screen Not Detected (NotDetected); Medtox Control Line Valid? VALID (VALID); Medtox Reader # READER 4; Methadone Not Detected (NotDetected); Methamphetamine Not Detected (NotDetected); Opiate Screen Detected (NotDetected); Oxycodone Screen Not Detected (NotDetected); Phencyclidine (PCP) Not Detected (NotDetected); THC/Cannabinoid Screen Not Detected (NotDetected); Tricyclic Screen Not Detected (NotDetected)
[2018-12-16 18:43] LABS: Acetaminophen Less than 6.0 mcg/mL (10.0-30.0); Alcohol Less than 10 mg/dL (Less than 10); Salicylate Less than 8.0 mg/dL (15.0-30.0)
--- NOTE | 2018-12-16 18:47 | CT ---
CT brain. HISTORY: Fall. Noncontrast enhanced CT images of the brain obtained. Comparison made to previous exam from 08/19/2018. Images demonstrate cortical atrophy and deep white matter ischemic changes. No evidence of acute intracranial masses, hemorrhages or strokes seen. Ventricles are of normal size. IMPRESSION: No evidence of acute intracranial abnormality seen.
[2018-12-16 18:52] LABS: ALT (SGPT) 12 U/L (8-55); AST (SGOT) 18 U/L (5-34); Albumin 3.9 g/dL (3.4-4.8); Alkaline Phosphatase 85 U/L (40-150); Anion Gap 15 mmol/L (10-20); BUN (Urea Nitrogen) 31 mg/dL (8.4-25.7); Bilirubin, Total 0.6 mg/dL (0.2-1.2); Calc. Creatinine Clearance 0 mL/min (70-130); Calcium 9.4 mg/dL (7.8-10.44); Carbon Dioxide 25 mmol/L (23-31); Chloride 104 mmol/L (98-107); Estimated GFR-MDRD 8; Globulin 2.3 g/dL (2.4-3.5); Glucose 104 mg/dL (83-110); Mean Platelet Volume 9.3 fL (7.4-10.4); Platelet Count 67 thou/uL (130-400); Potassium 4.9 mmol/L (3.5-5.1); Protein, Total 6.2 g/dL (5.8-8.1); Sodium 139 mmol/L (136-145)
[2018-12-16 18:53] LABS: #Eosinphils 0.4 thou/uL (0.0-0.7); #Lymphocytes 0.8 thou/uL (1.20-3.40); #Monocytes 0.4 thou/uL (0.11-0.59); #Neutrophils 5.1 thou/uL (1.40-6.50); %Basophils 0.3 % (0.0-1.0); %Eosinophils 6.1 % (0.0-10.0); %Lymphocytes 12.2 % (21.0-51.0); %Monocytes 5.5 % (0.0-10.0); %Neutrophils 75.9 % (42.0-75.0); Platelet Morphology Comment Appears Decreased; RBC Morphology Normal
[2018-12-16] MEDS ORDERED: cefTRIAXone\\ROCEPHIN 2 GM VIAL ONE (20:00)
[2018-12-16] MEDS ORDERED: Acetaminophen 325 MG TAB PO PRN (21:46)
[2018-12-16] MEDS ORDERED: Ondansetron ODT 4 MG TAB SL PRN (21:46)
[2018-12-16] MEDS ORDERED: Ondansetron PF 4 MG/2 ML Vial IVP PRN (21:46)
[2018-12-16 21:56] VITALS: BMI 27.5
[2018-12-17] MEDS ORDERED: Lorazepam 0.5 MG TAB PO PRN (01:02)
[2018-12-17] MEDS ORDERED: traZODone HCl 50 MG TAB PO SCH (01:15)
[2018-12-17] MEDS ORDERED: Losartan 25 MG TAB PO SCH ×2 (01:15→21:00)
[2018-12-17] MEDS ORDERED: Ondansetron ODT 4 MG TAB PO PRN (03:08)
[2018-12-17] MEDS ORDERED: Ondansetron PF 4 MG/2 ML Vial IVP PRN (03:08)
[2018-12-17] MEDS ORDERED: cloNIDine 0.1 MG TAB PO PRN ×2 (03:08→11:32)
[2018-12-17 04:20] LABS: Band 1 % (5-11); Lymphocytes 20 % (21-51); MDiff Complete? YES; Mean Corpuscular HGB CONC 32.7 g/dL (32.0-36.0); Mean Corpuscular Hemoglobin 32.4 pg (27.0-31.0); Mean Corpuscular Volume 99.1 fL (78.0-98.0); Mean Platelet Volume 9.6 fL (7.4-10.4); Monocytes 8 % (0-10); Neutrophil 71 % (42-75); Phosphorus 3.8 mg/dL (2.3-4.7); Platelet Count 71 thou/uL (130-400); Platelet Morphology Comment Appears Decreased; RBC Distribution Width 13.5 % (11.5-14.5); RBC Morphology Normal; White Blood Cell (WBC) Count 6.3 thou/uL (4.8-10.8)
[2018-12-17 04:21] LABS: ALT (SGPT) 13 U/L (8-55); AST (SGOT) 16 U/L (5-34); Albumin 3.9 g/dL (3.4-4.8); Alkaline Phosphatase 82 U/L (40-150); Anion Gap 15 mmol/L (10-20); BUN (Urea Nitrogen) 39 mg/dL (8.4-25.7); Bilirubin, Total 0.5 mg/dL (0.2-1.2); Calc. Creatinine Clearance 9 mL/min (70-130); Calcium 9.2 mg/dL (7.8-10.44); Carbon Dioxide 26 mmol/L (23-31); Chloride 103 mmol/L (98-107); Estimated GFR-MDRD 7; Globulin 2.6 g/dL (2.4-3.5); Glucose 82 mg/dL (83-110); Potassium 5.1 mmol/L (3.5-5.1); Protein, Total 6.5 g/dL (5.8-8.1); Sodium 139 mmol/L (136-145)
[2018-12-17 04:22] LABS: Magnesium 2.1 mg/dL (1.6-2.6)
[2018-12-17] MEDS ORDERED: cefTRIAXone\\ROCEPHIN 1 GM in Sodium Chloride 0.9% 100 ML IVPB SCH (05:00)
--- NOTE | 2018-12-17 07:12 | HP ---
PRIMARY CARE PROVIDER: Dr. Pravin Alcantar. PRIMARY SVP MARKETING: Dr. Cisneros at [facility]. CHIEF COMPLAINT: Confusion. HISTORY OF PRESENT ILLNESS: This is a 73-year-old male who presents to [facility] Emergency Department after apparently was noted confused while undergoing hemodialysis. EMS personnel were notified after the patient had received approximately 50% of his regular maintenance hemodialysis. The patient with known history of alcohol-induced dementia and intermittent confusion beyond baseline according to family members. No specific history of fever, chills, exposure history, or change to his chronic medication regimen. The patient had complained of mild headache, but no unilateral weakness, difficulty with speech, or visual changes. The patient currently receives maintenance hemodialysis on Sunday, Sunday, Sunday, and has been compliant with his regimen. In the emergency room, the patient underwent general evaluation including CT imaging of the brain showing no acute process. The patient received Rocephin 2 g IV x1 dose after initial urinalysis suspicious for possible infectious process. PAST MEDICAL HISTORY: 1. End-stage renal disease with hemodialysis on Sunday, Sunday, and Sunday. 2. Hypertension. 3. Hyperlipidemia. 4. Intermittent confusion, multifactorial. 5. Chronic thrombocytopenia secondary to alcohol abuse. 6. History of alcohol abuse, currently abstinent. 7. Anxiety/depression. 8. Coronary artery disease. PAST SURGICAL HISTORY: 1. Status post cardiac stent placement x1. 2. Status post lumbar spine surgery. 3. Status post bilateral rotator cuff repair. 4. Status post hemodialysis catheter placement. 5. Status post laparotomy for stomach perforation. CURRENT MEDICATIONS: 1. Bupropion XL 300 mg p.o. daily. 2. PhosLo 1334 mg p.o. t.i.d. with meals. 3. Tums 400 mg p.o. q.i.d. 4. Vitamin D3 of 2000 units p.o. daily. 5. Ativan 0.5 mg p.o. q.8 hours p.r.n. 6. Losartan 50 mg p.o. at bedtime. 7. Protonix 40 mg p.o. daily. 8. Mirapex 0.25 mg p.o. daily. 9. Flomax 0.4 mg p.o. daily. 10. Tramadol 50 mg 1 to 2 tablets p.o. b.i.d. p.r.n. 11. Trazodone 100 mg p.o. at bedtime. 12. Procardia XL 30 mg p.o. b.i.d. ALLERGIES: NO KNOWN DRUG ALLERGIES. FAMILY HISTORY: One brother with a history of liver cancer. Mother with coronary artery disease, from complications of coronary artery disease. Father with diabetes mellitus. SOCIAL HISTORY: The patient lives with his nephew in [facility]. Last alcohol intake, February 2018. No tobacco or illicit drug use. REVIEW OF SYSTEMS: Unable to obtain due to the patient's altered mental status. PHYSICAL EXAMINATION: VITAL SIGNS: Currently blood pressure 196/98, pulse 79, respiratory rate 18, temperature 97.7 degrees Fahrenheit, O2 saturation 98% on room air. GENERAL APPEARANCE: This is a 73-year-old male, alert and responsive, oriented to person and place, in no acute distress. HEENT: Pupils are equal, round, reactive to light and accommodation. Extraocular muscles are intact. No scleral icterus. No conjunctival injection. Nares patent. OP is clear. NECK: Supple. No cervical adenopathy. No thyromegaly. No carotid bruits. No JVD appreciated. Cervical spine with full active and passive range of motion. No meningeal signs noted. CHEST: Lungs are clear to auscultation bilaterally. CARDIOVASCULAR: S1, S2 without noted murmur, rub, or gallop. ABDOMEN: Rounded, soft, nontender, and nondistended. Bowel sounds are positive in all 4 quadrants. No hepatosplenomegaly. No abdominal bruits. No rebound or guarding appreciated. EXTREMITIES: Warm and dry with fair turgor. No clubbing, cyanosis, or asymmetric edema appreciated. Pulses are palpable distally at the dorsalis pedis, posterior tibial, and popliteal arteries bilaterally. Capillary refill less than 2 seconds. NEUROLOGIC: Cranial nerves 2 through 12 are grossly intact. Alert and oriented x2. PERTINENT LAB AND X-RAY FINDINGS: BUN 31, creatinine 6.88, calcium 9.4, potassium 4.9. LFTs within normal limits. Troponin I negative x1. CBC showed a white blood cell count of 6.7, hemoglobin 12, hematocrit 36, platelet count 67 with 76% neutrophils. Urinalysis positive for protein, glucose, small blood, and trace leukocyte esterase with 21 to 50 wbc's per high-power field. Urine drug screen, dated 12/16/2018, positive for benzodiazepines and opiates. CT of the brain without contrast, dated 12/16/2018, showed no acute intracranial process. EKG, dated 12/16/2018, by my interpretation shows sinus mechanism with heart rates in the 80s. Normal R-wave progression noted in the precordial leads. Normal axis. No acute ST-T wave changes appreciated. ASSESSMENT AND PLAN: 1. Acute metabolic encephalopathy. Likely multifactorial given the patient's history of alcohol abuse in conjunction with end-stage renal disease. We will check serum ammonia level. Check magnesium and phosphorus level. Continue general supportive management and monitor for clinical response. 2. End-stage renal disease with hemodialysis. We will consult Nephrology Service for timing of maintenance hemodialysis. The patient clinically without volume overload. 3. Hypertension. Labile. Resume home antihypertensive regimen with p.r.n. hydralazine and clonidine. 4. Urinary tract infection. Suspected after initial urinalysis. Await final urine culture results. Rocephin 1 g IV q.24 hours. 5. Anxiety/depression. Resume home anxiolytics and monitor clinical response. 6. Chronic thrombocytopenia. Stable currently. No evidence to suggest acute blood loss. Repeat platelet count in the a.m. 7. Prophylaxis. SCDs while in bed. Pepcid 20 mg p.o. b.i.d. 8. Code status is full. Surrogate medical decision maker is the patient's nephew. Job ID: [id number]
[2018-12-17] MEDS: Calcium Acetate 667 MG CAP PO SCH ×3 (07:59→17:11)
[2018-12-17] MEDS: Calcium Carbonate 500 MG ChewTAB PO SCH ×4 (07:59→20:28)
[2018-12-17] MEDS: Famotidine 20 MG TAB PO SCH (07:59)
[2018-12-17] MEDS: Tamsulosin HCl 0.4 MG CAP PO SCH (08:00)
[2018-12-17] MEDS ORDERED: traMADol HCl 50 MG TAB PO SCH (09:00)
[2018-12-17] MEDS ORDERED: NIFEdipine XL 30 MG TAB PO SCH (09:00)
[2018-12-17] MEDS: traMADol HCl 50 MG TAB PO SCH ×3 (09:03→22:12)
[2018-12-17] MEDS: hydrALAZINE 20 MG/ML VIAL SLOW IVP PRN ×3 (09:03→23:04)
[2018-12-17] MEDS: Pramipexole Di-HCl 0.25 MG TAB PO SCH (09:14)
--- NOTE | 2018-12-17 14:15 | CON ---
DATE OF CONSULTATION: HISTORY OF PRESENT ILLNESS: Mr. Araiza is a 73-year-old man with known history of ESRD, was admitted due to mental status change. He was undergoing dialysis and this was shortened due to confusion. This morning, he is more awake and alert. Of interest, this patient has history of alcohol-induced dementia. We are now being consulted for his maintenance hemodialysis. His regular dialysis days, Sunday, Sunday, and Sunday. REVIEW OF SYSTEMS: Positive for confusion. The patient could not recall what happened to him yesterday. No chest pain. No shortness of breath. No nausea. No vomiting. No diarrhea. No constipation. No productive cough. Denies any fever or chills. Appetite and energy level are fair. No dysuria. No hematochezia. No melena. No hematemesis. PAST MEDICAL HISTORY: ESRD on maintenance hemodialysis, Sunday, Sunday, and Sunday; coronary artery disease; history of alcohol abuse-currently abstinent; history of anxiety; chronic thrombocytopenia; intermittent confusion; hyperlipidemia; hypertension. PAST SURGICAL HISTORY: Status post cuffed hemodialysis catheter placement, status post exploratory laparotomy for stomach perforation, status post back surgery, status post bilateral rotator cuff surgery, status post cardiac cath with coronary stent placement. HOME MEDICATIONS: Includes the following, 1. Procardia XL 30 mg p.o. b.i.d. 2. Trazodone 100 mg at bedtime. 3. Tramadol 1 to 2 tabs b.i.d. p.r.n. 4. Flomax 0.4 mg daily. 5. Mirapex 0.25 mg p.o. daily. 6. Protonix 40 mg tablet once a day. 7. Losartan 50 mg at bedtime. 8. Ativan 0.5 mg q.8 p.r.n. 9. Vitamin D3 2000 international units daily x400 mg p.o. q.i.d. 10. PhosLo 667 mg two tablets t.i.d. with meals. 11. Bupropion XL 300 mg daily. SOCIAL HISTORY: Includes the following, he lives in [place]. He is single. No children. Lives with his brother. He is a retired construction project coordinator. Education, 4th grade. Status post alcohol abuse, currently not smoking. No IV drug abuse. Status post blood transfusion. ALLERGIES: NONE. TRAUMA: Status post right hand fracture, status post rib fracture. IMMUNIZATION: Up-to-date. HOSPITALIZATION: Please see past medical history. PHYSICAL EXAMINATION: VITAL SIGNS: Blood pressure is noted at 189/90, heart rate 83, respiratory rate 18, temperature 97.8, and pulse ox 97%. GENERAL: The patient is awake, alert, comfortable, not in distress. SKIN: Adequate turgor. HEENT: He has pinkish conjunctivae. Anicteric sclerae. NECK: No neck mass. No carotid bruits. No JVD. CHEST: No deformities. LUNGS: Clear breath sounds. No wheezing. No crackles. HEART: Normal sinus rhythm. No murmur. No gallops. No rubs. ABDOMEN: Globular, soft, nontender. No masses. EXTREMITIES: No edema. No deformities. He has a positive right IJ dialysis catheter. LABORATORY DATA: Laboratories of December 17, 2018, white count 6.3, hemoglobin 13. Sodium 139, potassium 5.1, chloride 103, carbon dioxide 26, BUN 39, creatinine 7.81, glucose 82, calcium 9.2, AST 16, ALT 13, albumin 3.9. Troponin I 0.027. Ammonia 34. IMAGING STUDIES: On December 16, 2018, CT scan of the brain, no acute intracranial abnormality. ASSESSMENT AND PLAN: 1. Confusion-unclear etiology. Ammonia level is within normal. I do not think the patient is uremic. He seems to be well dialyzed. 2. End-stage renal disease, stable. He is not in volume overload. Electrolytes are acceptable. No indication for any emergent dialysis today. I will reschedule him back on a regular Sunday, Sunday, and Sunday hemodialysis regimen. Overall, agree with current management. Job ID: [id number]
--- NOTE | 2018-12-17 15:18 | PDOC.EVN ---
Event Note - Event Note Event Note: Pt seen and examined. chart reviwed Feels Better.No new complaints RN reports uncontrolled BP Pt reports that it alays runs high. Will increase Losartan and procardia and monitor Cont PRN antihypertensives am labs Empiric ABx for UTI.follow Cx results
[2018-12-17] MEDS: Acetaminophen 500 MG TAB PO PRN (15:48)
[2018-12-17] MEDS: NIFEdipine XL 30 MG TAB PO SCH (20:28)
[2018-12-17] MEDS: traZODone HCl 50 MG TAB PO SCH (20:29)
[2018-12-17] MEDS: Losartan 25 MG TAB PO SCH (20:29)
[2018-12-17] MEDS: cefTRIAXone\\ROCEPHIN 1 GM in Sodium Chloride 0.9% 100 ML IVPB SCH (20:30)
[2018-12-18] MEDS: hydrALAZINE 20 MG/ML VIAL SLOW IVP PRN (03:05)
[2018-12-18] MEDS: Acetaminophen 500 MG TAB PO PRN ×2 (03:14→20:05)
[2018-12-18 05:38] LABS: Anion Gap 16 mmol/L (10-20); BUN (Urea Nitrogen) 50 mg/dL (8.4-25.7); Calc. Creatinine Clearance 8 mL/min (70-130); Calcium 9.1 mg/dL (7.8-10.44); Carbon Dioxide 25 mmol/L (23-31); Chloride 100 mmol/L (98-107); Estimated GFR-MDRD 6; Glucose 81 mg/dL (83-110); Potassium 5.5 mmol/L (3.5-5.1); Sodium 135 mmol/L (136-145)
--- NOTE | 2018-12-18 09:44 | PRG ---
DATE OF SERVICE: 12/18/2018 SUBJECTIVE: Mr. Araiza is a 73-year-old male with ESRD and was admitted for UTI and for confusion. He is currently on empiric IV antibiotics. We are following this patient for his maintenance hemodialysis. No other complaints today except for some mild dysuria. No chest pain or shortness of breath. The patient is scheduled for dialysis. OBJECTIVE: VITAL SIGNS: Blood pressure 150/81, heart rate 92, respiratory rate 22, temperature 98.4, and pulse ox 93%. GENERAL: Awake, alert, comfortable, not in overt distress. SKIN: Adequate turgor. HEENT: He has pinkish conjunctivae. Anicteric sclerae. NECK: No neck mass. No carotid bruits. No JVD. CHEST: No deformities. LUNGS: Clear breath sounds. HEART: Normal sinus rhythm. No murmur. No gallops or rubs. ABDOMEN: Globular, soft, nontender. No masses. EXTREMITIES: No edema. MEDICATIONS: Medications of December 18, 2018, was reviewed. LABORATORY DATA: On December 17, 2018; white count 6.2, hemoglobin 13, sodium 135, potassium 5.5, chloride 100, carbon dioxide 25, BUN 50, creatinine 9.16, glucose 81, calcium 9.1. ASSESSMENT AND PLAN: 1. End-stage renal disease, stable. We will continue current hemodialysis regimen on Sunday, Sunday, and Sunday. Fluid removal only as tolerated. 2. Mild hyperkalemia. The patient is scheduled for dialysis. 3. Urinary tract infection, currently on IV antibiotics. 4. Agree with current management. Job ID: [id number]
[2018-12-18] MEDS: Calcium Acetate 667 MG CAP PO SCH ×3 (10:43→16:42)
[2018-12-18] MEDS: Calcium Carbonate 500 MG ChewTAB PO SCH ×4 (10:43→19:57)
[2018-12-18] MEDS ORDERED: Heparin 10,000 UNITS/ 10 ML VIAL ONE ×2 (11:11)
--- NOTE | 2018-12-18 13:42 | PDOC.PN ---
- Subjective Encounter Start Date: 12/18/18 Encounter Start Time: 13:40 Subjective: feels tired and weak.has burning with urination -: no abd pain/N/V/D.no fever/chills - Objective Resuscitation Status - Order Detail: 12/17/18 03:01 Resuscitation Status Routine Resuscitation Status: FULL: Full Resuscitation MAR Reviewed: Yes Vital Signs & Weight: Vital Signs (12 hours) Temp Pulse Resp BP BP BP Pulse Ox 12/18/18 07:24 98.4 F 92 22 H 150/81 H 93 L 12/18/18 04:00 98.6 F 87 20 150/81 H 96 12/18/18 03:05 83 192/95 H Weight Weight 170 lb 7 oz I&O: 12/17/18 12/18/18 12/19/18 06:59 06:59 06:59 Intake Total 500 Output Total 200 Balance 300 Result Diagrams: 12/17/18 03:51 12/18/18 04:18 Additional Labs: Microbiology 12/16/18 18:02 Urine voided Urine Culture - Preliminary NO GROWTH AT 24 HOURS Phys Exam - Physical Examination Constitutional: NAD tired an dill looking HEENT: PERRLA, moist MMs, sclera anicteric, oral pharynx no lesions Neck: no nodes, no JVD, supple, full ROM Respiratory: no wheezing, no rales, no rhonchi, clear to auscultation bilateral Cardiovascular: RRR, no significant murmur Gastrointestinal: soft, non-tender, no distention, positive bowel sounds Musculoskeletal: no edema, pulses present Neurological: non-focal, normal sensation, moves all 4 limbs Psychiatric: normal affect, A&O x 3 Skin: no rash Dx/Plan (1) UTI (urinary tract infection) Status: Acute Comment: Cx pending. cont empiric IV ABx. (2) Uncontrolled hypertension Code(s): I10 - ESSENTIAL (PRIMARY) HYPERTENSION Status: Acute Comment: Losartan and Nifedipine increased yesterday.reconcile home meds (3) Anxiety and depression Code(s): F41.9 - ANXIETY DISORDER, UNSPECIFIED; F32.9 - MAJOR DEPRESSIVE DISORDER, SINGLE EPISODE, UNSPECIFIED Status: Chronic (4) ESRD (end stage renal disease) on dialysis Code(s): N18.6 - END STAGE RENAL DISEASE; Z99.2 - DEPENDENCE ON RENAL DIALYSIS Status: Chronic Comment: HD in house . renal Function panel check (5) H/O alcohol abuse Code(s): Z87.898 - PERSONAL HISTORY OF OTHER SPECIFIED CONDITIONS Status: Chronic (6) Thrombocytopenia Code(s): D69.6 - THROMBOCYTOPENIA, UNSPECIFIED Status: Chronic Comment: due to H/O ETOH - Plan continue antibiotics, PT/OT, respiratory therapy, incentive spirometry, out of bed/ambulate, DVT proph w/SCDs Cont IV rocephin .awaiting final urine cXresults -: BP better .cont losaratn and Nifedipine.prn meds -: am labs -: hemodialysis * . Review of Systems - Review of Systems Constitutional: weakness, malaise. negative: fever, chills, sweats, other Respiratory: negative: Cough, Dry, Shortness of Breath, Hemoptysis, SOB with Excertion, Pleuritic Pain, Sputum, Wheezing Cardiovascular: negative: chest pain, palpitations, orthopnea, paroxysmal nocturnal dyspnea, edema, light headedness, other Gastrointestinal: negative: Nausea, Vomiting, Abdominal Pain, Diarrhea, Constipation, Melena, Hematochezia, Other Genitourinary: Dysuria Musculoskeletal: negative: Neck Pain, Shoulder Pain, Arm Pain, Back Pain, Hand Pain, Leg Pain, Foot Pain, Other Skin: negative: Rash, Lesions, [place], Bruising, Other Neurological: negative: Weakness, Numbness, Incoordination, Change in Speech, Confusion, Seizures, Other - Medications/Allergies Allergies/Adverse Reactions: Allergies Allergy/AdvReac Type Severity Reaction Status Date / Time No Known Allergies Allergy Verified 12/16/18 23:17 Medications: Current Medications Acetaminophen (Tylenol) 1,000 mg PO Q6H PRN PRN Reason: Mild Pain (1-3) Last Admin: 12/18/18 03:14 Dose: 1,000 mg Bupropion HCl (Wellbutrin Xl) 300 mg PO DAILY [facility] Calcium Acetate (Phoslo) 1,334 mg PO TID-[facility] Last Admin: 12/18/18 10:43 Dose: Not Given Calcium Carbonate (Tums) 500 mg PO QID [facility] Last Admin: 12/18/18 10:43 Dose: Not Given Cholecalciferol (Vitamin D3) 2,000 units PO DAILY [facility] Last Admin: 12/17/18 07:59 Dose: 2,000 units Clonidine (Catapres) 0.1 mg PO Q4H PRN PRN Reason: SBP GREATER THAN 160 Famotidine (Pepcid) 20 mg PO QAM [facility] Last Admin: 12/17/18 07:59 Dose: 20 mg Hydralazine HCl (Apresoline) 10 mg SLOW IVP Q4H PRN PRN Reason: SBP > 180 and HR < 70 Last Admin: 12/18/18 03:05 Dose: 10 mg Ceftriaxone Sodium 1 gm/ (Sodium Chloride) 100 mls @ 200 mls/hr IVPB 2000 [facility] Last Admin: 12/17/18 20:30 Dose: 100 mls Lorazepam (Ativan) 0.5 mg PO Q8H PRN PRN Reason: Anxiety Losartan Potassium (Cozaar) 100 mg PO HS [facility] Last Admin: 12/17/18 20:29 Dose: 100 mg Nifedipine (Procardia Xl) 60 mg PO BID [facility] Last Admin: 12/17/18 20:28 Dose: 60 mg Ondansetron HCl (Zofran Odt) 4 mg PO Q6H PRN PRN Reason: Nausea/Vomiting Ondansetron HCl (Zofran) 4 mg IVP Q6H PRN PRN Reason: Nausea/Vomiting Pramipexole Dihydrochloride (Mirapex) 0.25 mg PO DAILY [facility] Last Admin: 12/17/18 09:14 Dose: 0.25 mg Sodium Chloride (Flush - Normal Saline) 10 ml IVF Q12HR [facility] Last Admin: 12/17/18 20:36 Dose: 10 ml Sodium Chloride (Flush - Normal Saline) 10 ml IVF PRN PRN PRN Reason: Saline Flush Tamsulosin HCl (Flomax) 0.4 mg PO DAILY [facility] Last Admin: 12/17/18 08:00 Dose: 0.4 mg Tramadol HCl (Ultram) 50 mg PO BID [facility] Last Admin: 12/17/18 22:12 Dose: 50 mg Trazodone HCl (Desyrel) 100 mg PO HS [facility] Last Admin: 12/17/18 20:29 Dose: 100 mg
[2018-12-18] MEDS: Famotidine 20 MG TAB PO SCH (15:45)
[2018-12-18] MEDS: Bupropion 150 MG XL TAB PO SCH (15:45)
[2018-12-18] MEDS: Tamsulosin HCl 0.4 MG CAP PO SCH (15:46)
[2018-12-18] MEDS: NIFEdipine XL 30 MG TAB PO SCH ×2 (15:46→22:28)
[2018-12-18] MEDS: traMADol HCl 50 MG TAB PO SCH ×2 (15:46→22:29)
[2018-12-18] MEDS: Pramipexole Di-HCl 0.25 MG TAB PO SCH (15:50)
[2018-12-18] MEDS: cefTRIAXone\\ROCEPHIN 1 GM in Sodium Chloride 0.9% 100 ML IVPB SCH (19:56)
[2018-12-18] MEDS: traZODone HCl 50 MG TAB PO SCH (19:57)
[2018-12-18] MEDS: Losartan 25 MG TAB PO SCH (19:58)
[2018-12-19 05:43] LABS: #Basophils 0.1 thou/uL (0.0-0.2); #Eosinphils 0.3 thou/uL (0.0-0.7); #Lymphocytes 1.4 thou/uL (1.20-3.40); #Monocytes 0.6 thou/uL (0.11-0.59); #Neutrophils 3.9 thou/uL (1.40-6.50); %Basophils 0.9 % (0.0-1.0); %Eosinophils 4.8 % (0.0-10.0); %Monocytes 8.7 % (0.0-10.0); %Neutrophils 62.6 % (42.0-75.0); Hemoglobin 12.7 g/dL (14.0-18.0); Mean Corpuscular HGB CONC 33.1 g/dL (32.0-36.0); Mean Corpuscular Hemoglobin 33.2 pg (27.0-31.0); Mean Platelet Volume 9.2 fL (7.4-10.4); Platelet Count 91 thou/uL (130-400); RBC Distribution Width 13.3 % (11.5-14.5); Red Blood Cell (RBC) Count 3.82 mill/uL (4.70-6.10); White Blood Cell (WBC) Count 6.3 thou/uL (4.8-10.8)
[2018-12-19 06:09] LABS: Anion Gap 14 mmol/L (10-20); BUN (Urea Nitrogen) 23 mg/dL (8.4-25.7); Calc. Creatinine Clearance 12 mL/min (70-130); Calcium 8.6 mg/dL (7.8-10.44); Carbon Dioxide 28 mmol/L (23-31); Chloride 98 mmol/L (98-107); Estimated GFR-MDRD 9; Glucose 83 mg/dL (83-110); Potassium 4.8 mmol/L (3.5-5.1); Sodium 135 mmol/L (136-145)
[2018-12-19] MEDS: Calcium Acetate 667 MG CAP PO SCH ×3 (08:05→16:49)
[2018-12-19] MEDS: NIFEdipine XL 30 MG TAB PO SCH (08:06)
[2018-12-19] MEDS: Tamsulosin HCl 0.4 MG CAP PO SCH (08:06)
[2018-12-19] MEDS: traMADol HCl 50 MG TAB PO SCH ×2 (08:07→20:12)
[2018-12-19] MEDS: Famotidine 20 MG TAB PO SCH (08:07)
[2018-12-19] MEDS: Pramipexole Di-HCl 0.25 MG TAB PO SCH (08:09)
[2018-12-19] MEDS: Bupropion 150 MG XL TAB PO SCH (08:09)
[2018-12-19] MEDS: Calcium Carbonate 500 MG ChewTAB PO SCH ×4 (08:13→20:09)
[2018-12-19] MEDS ORDERED: Lorazepam 0.5 MG TAB PO PRN (09:02)
--- NOTE | 2018-12-19 09:55 | PRG ---
DATE OF SERVICE: 12/19/2018 SUBJECTIVE: Mr. Araiza is a 73-year-old male, who was admitted for mental status change with UTI. He is feeling better. His dysuria has improved. We are following him up for his maintenance hemodialysis. He underwent dialysis without any difficulty. Fluid removal was tolerated this morning. He is feeling better. He denies any chest pain or shortness of breath or any dysuria. OBJECTIVE: VITAL SIGNS: Blood pressure 147/80, heart rate 83, respiratory rate 20, temperature 97.8, and pulse ox 96%. GENERAL: Noted to be awake, alert, comfortable, supine, not in distress. SKIN: Adequate turgor. HEENT: Pinkish conjunctivae. Anicteric sclerae. NECK: No neck mass. No carotid bruits. No JVD. CHEST: No deformities. LUNGS: Clear breath sounds. HEART: Normal sinus rhythm. No murmur. No gallops. No rubs. ABDOMEN: Globular, soft, and nontender. No masses. EXTREMITIES: No edema. No deformities. MEDICATIONS: Medications of 12/19/2018, reviewed. LABORATORY DATA: On 12/19/2018: White count 6.3 and hemoglobin 12.7. Sodium 135, potassium 4.8, chloride 98, carbon dioxide 28, BUN 23, creatinine 6.13, glucose 83, and calcium 8.6. ASSESSMENT AND PLAN: 1. Hyperkalemia, improved with dialysis. Potassium is now 4.8 and yesterday this was 5.5. 2. End-stage renal disease, stable, tolerating current hemodialysis regimen. Continue current Sunday, Sunday, and Sunday dialysis. No indication for an emergent dialysis. 3. Urinary tract infection/mental status change, much improved. Tolerating IV antibiotics. The change in mentation may be related to his underlying infection. He is doing well overall. From a renal point of view, consider discharge. Job ID: [id number]
--- NOTE | 2018-12-19 14:58 | PDOC.PN ---
- Subjective Encounter Start Date: 12/19/18 Encounter Start Time: 14:54 Subjective: feels well. less pain with urination - Objective Resuscitation Status - Order Detail: 12/17/18 03:01 Resuscitation Status Routine Resuscitation Status: FULL: Full Resuscitation MAR Reviewed: Yes Vital Signs & Weight: Vital Signs (12 hours) Temp Pulse Resp BP BP Pulse Ox 12/19/18 11:41 97.8 F 80 20 161/84 H 97 12/19/18 08:06 83 147/80 H 12/19/18 08:00 96 12/19/18 07:47 97.8 F 83 20 147/80 H 96 12/19/18 04:00 98.5 F 83 16 149/79 H 95 Weight Weight 170 lb 7 oz I&O: 12/18/18 12/19/18 12/20/18 06:59 06:59 06:59 Intake Total 500 480 Output Total 200 Balance 300 480 Result Diagrams: 12/19/18 05:15 12/19/18 05:15 Phys Exam - Physical Examination Constitutional: NAD HEENT: PERRLA, moist MMs, sclera anicteric, oral pharynx no lesions Neck: no nodes, no JVD, supple, full ROM Respiratory: no wheezing, no rales, no rhonchi, clear to auscultation bilateral Cardiovascular: RRR, no significant murmur Gastrointestinal: soft, non-tender, no distention, positive bowel sounds Musculoskeletal: no edema, pulses present Neurological: non-focal, normal sensation, moves all 4 limbs Psychiatric: normal affect, A&O x 3 Skin: no rash Dx/Plan (1) UTI (urinary tract infection) Status: Acute Comment: Cx pending. cont empiric IV ABx. (2) Uncontrolled hypertension Code(s): I10 - ESSENTIAL (PRIMARY) HYPERTENSION Status: Acute Comment: Losartan and Nifedipine increased yesterday.reconcile home meds (3) Anxiety and depression Code(s): F41.9 - ANXIETY DISORDER, UNSPECIFIED; F32.9 - MAJOR DEPRESSIVE DISORDER, SINGLE EPISODE, UNSPECIFIED Status: Chronic (4) ESRD (end stage renal disease) on dialysis Code(s): N18.6 - END STAGE RENAL DISEASE; Z99.2 - DEPENDENCE ON RENAL DIALYSIS Status: Chronic Comment: HD in house . renal Function panel check (5) H/O alcohol abuse Code(s): Z87.898 - PERSONAL HISTORY OF OTHER SPECIFIED CONDITIONS Status: Chronic (6) Thrombocytopenia Code(s): D69.6 - THROMBOCYTOPENIA, UNSPECIFIED Status: Chronic Comment: due to H/O ETOH - Plan continue antibiotics, PT/OT, respiratory therapy, incentive spirometry, out of bed/ambulate, DVT proph w/SCDs restart Coreg.reduce losartan back to 50 mg from 100 mg /daily -: change procardia to 60 daily from 30 BId as long acting -: urine Cx shows contamination. cont rocephin for now -: If BP stable , likely DC in am -: OT,PT.will likely need HH * . Review of Systems - Review of Systems Constitutional: weakness, malaise. negative: fever, chills, sweats, other ENT: negative: Ear Pain, Ear Discharge, Nose Pain, Nose Discharge, Nose Congestion, Mouth Pain, Mouth Swelling, Throat Pain, Throat Swelling, Other Respiratory: negative: Cough, Dry, Shortness of Breath, Hemoptysis, SOB with Excertion, Pleuritic Pain, Sputum, Wheezing Cardiovascular: negative: chest pain, palpitations, orthopnea, paroxysmal nocturnal dyspnea, edema, light headedness, other Gastrointestinal: negative: Nausea, Vomiting, Abdominal Pain, Diarrhea, Constipation, Melena, Hematochezia, Other Genitourinary: negative: Dysuria, Frequency, Incontinence, Hematuria, Retention , Other Musculoskeletal: negative: Neck Pain, Shoulder Pain, Arm Pain, Back Pain, Hand Pain, Leg Pain, Foot Pain, Other Neurological: negative: Weakness, Numbness, Incoordination, Change in Speech, Confusion, Seizures, Other - Medications/Allergies Allergies/Adverse Reactions: Allergies Allergy/AdvReac Type Severity Reaction Status Date / Time No Known Allergies Allergy Verified 12/16/18 23:17 Medications: Current Medications Acetaminophen (Tylenol) 1,000 mg PO Q6H PRN PRN Reason: Mild Pain (1-3) Last Admin: 12/18/18 20:05 Dose: 1,000 mg Bupropion HCl (Wellbutrin Xl) 300 mg PO DAILY [facility] Last Admin: 12/19/18 08:09 Dose: 300 mg Calcium Acetate (Phoslo) 1,334 mg PO TID[facility] Last Admin: 12/19/18 12:44 Dose: 1,334 mg Calcium Carbonate (Tums) 500 mg PO QID [facility] Last Admin: 12/19/18 12:43 Dose: 500 mg Carvedilol (Coreg) 6.25 mg PO BID [facility] Cholecalciferol (Vitamin D3) 2,000 units PO DAILY [facility] Last Admin: 12/19/18 08:05 Dose: 2,000 units Clonidine (Catapres) 0.1 mg PO Q4H PRN PRN Reason: SBP GREATER THAN 160 Famotidine (Pepcid) 20 mg PO QAM [facility] Last Admin: 12/19/18 08:07 Dose: 20 mg Hydralazine HCl (Apresoline) 10 mg SLOW IVP Q4H PRN PRN Reason: SBP > 180 and HR < 70 Last Admin: 12/18/18 03:05 Dose: 10 mg Ceftriaxone Sodium 1 gm/ (Sodium Chloride) 100 mls @ 200 mls/hr IVPB 1999 [facility] Last Admin: 12/18/18 19:56 Dose: 100 mls Lorazepam (Ativan) 0.5 mg PO Q8H PRN PRN Reason: Anxiety Last Admin: 12/19/18 02:12 Dose: 0.5 mg Lorazepam (Ativan) 0.5 mg PO Q8HR PRN PRN Reason: Anxiety Losartan Potassium (Cozaar) 50 mg PO HS [facility] Nifedipine (Procardia Xl) 60 mg PO 1200 [facility] Ondansetron HCl (Zofran Odt) 4 mg PO Q6H PRN PRN Reason: Nausea/Vomiting Ondansetron HCl (Zofran) 4 mg IVP Q6H PRN PRN Reason: Nausea/Vomiting Pantoprazole Sodium (Protonix) 40 mg PO DAILY [facility] Pramipexole Dihydrochloride (Mirapex) 0.25 mg PO DAILY [facility] Last Admin: 12/19/18 08:09 Dose: 0.25 mg Sodium Chloride (Flush - Normal Saline) 10 ml IVF Q12HR [facility] Last Admin: 12/19/18 08:12 Dose: 10 ml Sodium Chloride (Flush - Normal Saline) 10 ml IVF PRN PRN PRN Reason: Saline Flush Tamsulosin HCl (Flomax) 0.4 mg PO DAILY [facility] Last Admin: 12/19/18 08:06 Dose: 0.4 mg Tramadol HCl (Ultram) 50 mg PO BID [facility] Last Admin: 12/19/18 08:07 Dose: 50 mg Trazodone HCl (Desyrel) 100 mg PO [facility] Last Admin: 12/18/18 19:57 Dose: 100 mg
[2018-12-19] MEDS: Acetaminophen 500 MG TAB PO PRN ×2 (16:49→22:41)
[2018-12-19] MEDS: hydrALAZINE 20 MG/ML VIAL SLOW IVP PRN (16:56)
[2018-12-19] MEDS: cefTRIAXone\\ROCEPHIN 1 GM in Sodium Chloride 0.9% 100 ML IVPB SCH (20:09)
[2018-12-19] MEDS: Carvedilol 6.25 MG TAB PO SCH (20:10)
[2018-12-19] MEDS ORDERED: Losartan 25 MG TAB PO SCH (21:00)
[2018-12-19] MEDS: traZODone HCl 50 MG TAB PO SCH (21:28)
[2018-12-20] MEDS ORDERED: NIFEdipine XL 30 MG TAB PO SCH ×2 (09:00→12:00)
--- NOTE | 2018-12-20 10:23 | PRG ---
DATE OF SERVICE: 12/20/2018 SUBJECTIVE: Mr. Araiza is a 73-year-old male, who was admitted for mental status change/UTI. He is clinically much improved and UTI was treated. We are following him up for his maintenance hemodialysis. I am currently dialyzing the patient. I am at the bedside supervising his dialysis. No other complaints. He is feeling better. OBJECTIVE: VITAL SIGNS: Blood pressure 151/87, heart rate 87, respiratory rate 20, temperature 98.1, and pulse ox 95%. GENERAL: Awake, alert, comfortable, not in distress. SKIN: Adequate turgor. HEENT: Pinkish conjunctivae. Anicteric sclerae. NECK: No neck mass. No carotid bruits. No JVD. CHEST: No deformities. LUNGS: Clear breath sounds. No wheezing. No crackles. HEART: Normal sinus rhythm. No murmur. No gallops. No rubs. ABDOMEN: Globular, soft, nontender. No masses. EXTREMITIES: No edema. MEDICATIONS: Medications of December 20, 2018, reviewed. LABORATORY DATA: Laboratories of December 19, 2018; white count 6.3, hemoglobin 12.7. Sodium 135, potassium 4.8, chloride 98, carbon dioxide 28, BUN 23, creatinine 6.13, calcium 8.6. ASSESSMENT AND PLAN: 1. End-stage renal disease, stable. Continue current maintenance hemodialysis on Sunday, Sunday, and Sunday. He is tolerating the said dialysis regimen. 2. Urinary tract infection, clinically much improved. 3. Mental status change, resolved-most likely secondary to his underlying infection. Doing well overall. Agree with plan of discharge. Job ID: [id number]
[2018-12-20] MEDS: Calcium Acetate 667 MG CAP PO SCH ×2 (13:43→14:55)
[2018-12-20] MEDS: Calcium Carbonate 500 MG ChewTAB PO SCH ×2 (13:43→14:56)
[2018-12-20] MEDS: Carvedilol 6.25 MG TAB PO SCH (14:55)
[2018-12-20] MEDS: Tamsulosin HCl 0.4 MG CAP PO SCH (14:55)
[2018-12-20] MEDS: Famotidine 20 MG TAB PO SCH (14:55)
[2018-12-20] MEDS: Pramipexole Di-HCl 0.25 MG TAB PO SCH (14:56)
[2018-12-20] MEDS: Bupropion 150 MG XL TAB PO SCH (14:56)
[2018-12-20 15:55] VITALS: BP 163/90; TEMP 99.3
[2018-12-20] MEDS: traMADol HCl 50 MG TAB PO SCH (15:57)
--- NOTE | 2018-12-21 05:23 | DIS ---
DATE OF ADMISSION: 12/16/2018 DATE OF DISCHARGE: 12/20/2018 CONDITION AT DISCHARGE: Stable and improved. DISCHARGE DIAGNOSES: 1. Urinary tract infection. 2. Uncontrolled hypertensive urgency. 3. Essential hypertension. 4. Anxiety and depression. 5. End-stage renal disease, on hemodialysis. 6. History of alcohol abuse with resultant chronic thrombocytopenia. DISCHARGE MEDICATIONS: New medications: 1. Omnicef 300 mg p.o. b.i.d. for 5 more days. 2. Nifedipine XL 60 mg daily. 3. Florastor 250 mg daily. Resume home medications as follows: 1. Coreg 6.25 mg p.o. b.i.d. 2. Protonix 40 mg daily. 3. PhosLo t.i.d. 4. Losartan 50 mg daily. 5. Mirapex daily in the evening. 6. Flomax 0.4 mg daily. 7. Trazodone 100 mg at bedtime. 8. Bupropion 300 mg daily. PRIMARY CARE PHYSICIAN: Dr. Pravin Alcantar. INHOUSE CONSULTATION: Nephrology, Dr. Gallo. PROCEDURES: 1. In-house maintenance hemodialysis. 2. CT scan of the brain upon presentation, which did not show any acute changes. HISTORY OF PRESENTING ILLNESS: Mr. Araiza is a pleasant 73-year-old male with a past medical history of end-stage renal disease, on hemodialysis, as well as diabetes, hypertension, dyslipidemia, who presented to the emergency room with complaints of confusion. EMS was called from hemodialysis because of confusion. He has known history of alcohol-induced dementia. He had no neurological changes upon presentation. A CT of the brain upon presentation was unremarkable. UA was suggestive of UTI. He was given Rocephin and was admitted with a presumptive diagnosis of acute metabolic encephalopathy due to UTI. Please see admission history and physical dictated by Dr. Vang on 12/17/2018. HOSPITAL COURSE: The patient had an uneventful hospital course except for very difficult to control his blood pressure. There was a delayed in getting his correct list from the home, but eventually it was faxed over. His medications were adjusted. He was restarted on his carvedilol at 6.25 p.o. b.i.d. along with losartan 50 mg daily. His Procardia is changed from 30 mg p.o. b.i.d. to 60 mg daily and his blood pressure is under much better control. From 200s systolic, he has been down to 150s systolic. His urine culture did not yield any bacteria. It seemed like a contaminated culture with mixed skin seth. His symptoms, however, have improved significantly. He was continued on empiric antibiotic in the hospital and will be discharged on empiric Omnicef for now. Clinically, he is better. I have seen and examined prior to discharge. He is getting hemodialysis and will be discharged after that. His vital signs are stable this morning with blood pressure this morning of 151/87. He is in no acute distress and feels much better and is eager to go home. Note the chest is clear to auscultation bilaterally. Rate rhythm is regular. He will be discharged home. I am trying to arrange home health for nursing help so he can take his medications correctly because there is some history that because of the dementia, he keeps forgetting to take his medications properly. TOTAL TIME SPENT: In the discharge 35 minutes. Job ID: [id number]
== END 2018-12-20 16:27 | disposition home or self-care (01) | DRG 689 ==
LOC: ERS 17:31 → T4-A 20:19
PROVIDERS: ADMIT Internal Medicine; ATTEND Internal Medicine
PROC: 5A1D70Z Performance of Urinary Filtration, Intermittent, Less than 6 Hours Per Day (ICD-10-PCS; principal; 2018-12-16)
DX: N39.0 Urinary tract infection, site not specified (principal); N18.6 End stage renal disease; G93.41 Metabolic encephalopathy; I12.0 Hypertensive chronic kidney disease with stage 5 chronic kidney disease or end stage renal disease; D69.6 Thrombocytopenia, unspecified; I25.10 Atherosclerotic heart disease of native coronary artery without angina pectoris; F41.9 Anxiety disorder, unspecified; F32.9 Major depressive disorder, single episode, unspecified; E78.5 Hyperlipidemia, unspecified; E87.5 Hyperkalemia; Z95.5 Presence of coronary angioplasty implant and graft; Z99.2 Dependence on renal dialysis; Z87.891 Personal history of nicotine dependence; Z79.899 Other long term (current) drug therapy
CPT/HCPCS: 36415; 36416; 70450; 80048; 80053; 80306; 80307; 81003; 81015; 82140; 83735; 84100; 84484; 85007; 85025; 85027; 87086; 93005; 96365; J0360; J0696; J1644; J3490

== ENCOUNTER 2019-06-19 13:04 | Outpatient (CLI) | payer MEDICARE, OTHER ==
--- NOTE | 2019-06-19 15:06 | ULT ---
BILATERAL UPPER EXTREMITY VENOUS MAPPING FOR DIALYSIS ACCESS: HISTORY: End stage renal disease. COMPARISON: None. TECHNIQUE: Linda-scale, color-flow, Doppler imaging and spectral wave-form analysis was performed of the left and right upper extremity venous system. FINDINGS: RIGHT UPPER EXTREMITY Brachial artery: 5.6 mm Radial artery: 3.1 mm Ulnar artery: 1.7 mm CEPHALIC VEIN Proximal humerus: 2 mm Mid humerus: 2.7 mm Distal humerus: 1.5 mm Antecubital fossa: 1.1 mm Proximal forearm: 1.6 mm Mid forearm: 1.8 mm Distal forearm: 1.4 mm BASILIC VEIN Proximal humerus: 3.9 mm Mid humerus: 3.4 mm Distal humerus: 3.2 mm Antecubital fossa: 3.2 mm Proximal forearm: 2.0 mm Mid forearm: 1.4 mm Distal forearm: 1.5 mm LEFT UPPER EXTREMITY Brachial artery: 5.5 mm Radial artery: 3.0 mm Ulnar artery: 1.5 mm CEPHALIC VEIN Proximal humerus: 3.5 mm Mid humerus: 3.9 mm Distal humerus: 3.3 mm Antecubital fossa: 3.1 mm Proximal forearm: 1.8 mm Mid forearm: 1.8 mm Distal forearm: 1.6 mm BASILIC VEIN Proximal humerus: 3.1 mm Mid humerus: 2.9 mm Distal humerus: 2.5 mm Antecubital fossa: 2.3 mm Proximal forearm: 1.2 mm Mid forearm: 1.0 mm Distal forearm: 1.0 mm IMPRESSION: Vascular mapping as above. POS: OFF
== END 2019-06-19 13:05 | disposition home or self-care (01) ==
LOC: ULT 13:04
PROVIDERS: ATTEND Surgery
DX: N18.6 End stage renal disease (principal)
CPT/HCPCS: 93970; G0365

== ENCOUNTER 2019-07-21 00:47 | Emergency (ER) | payer MEDICARE ==
[2019-07-21] MEDS ORDERED: Diazepam 5 MG TAB ONE (01:21)
== END 2019-07-21 03:23 ==
LOC: ERS 00:47
DX: M54.9 Dorsalgia, unspecified (principal); G89.29 Other chronic pain; E78.5 Hyperlipidemia, unspecified; I25.10 Atherosclerotic heart disease of native coronary artery without angina pectoris; F03.90 Unspecified dementia, unspecified severity, without behavioral disturbance, psychotic disturbance, mood disturbance, and anxiety; I12.0 Hypertensive chronic kidney disease with stage 5 chronic kidney disease or end stage renal disease; N18.6 End stage renal disease; E03.9 Hypothyroidism, unspecified; G20 Parkinson's disease; F41.9 Anxiety disorder, unspecified; F32.9 Major depressive disorder, single episode, unspecified; E87.1 Hypo-osmolality and hyponatremia; Z79.899 Other long term (current) drug therapy; Z79.891 Long term (current) use of opiate analgesic; Z79.01 Long term (current) use of anticoagulants
CPT/HCPCS: 99283

== ENCOUNTER 2019-09-05 17:25 | Emergency (ER) | payer MEDICARE, OTHER ==
[2019-09-05] MEDS ORDERED: Carvedilol 25 MG TAB PO SCH (19:15)
== END 2019-09-05 20:44 | disposition home or self-care (01) ==
LOC: ERS 17:25
DX: I13.2 Hypertensive heart and chronic kidney disease with heart failure and with stage 5 chronic kidney disease, or end stage renal disease (principal); I50.9 Heart failure, unspecified; N18.6 End stage renal disease; E78.5 Hyperlipidemia, unspecified; E03.9 Hypothyroidism, unspecified; F03.90 Unspecified dementia, unspecified severity, without behavioral disturbance, psychotic disturbance, mood disturbance, and anxiety; G20 Parkinson's disease; I25.10 Atherosclerotic heart disease of native coronary artery without angina pectoris; F41.9 Anxiety disorder, unspecified; F32.9 Major depressive disorder, single episode, unspecified; E87.1 Hypo-osmolality and hyponatremia; D64.9 Anemia, unspecified; D69.6 Thrombocytopenia, unspecified; Z79.891 Long term (current) use of opiate analgesic; Z79.899 Other long term (current) drug therapy
CPT/HCPCS: 99283

== ENCOUNTER 2019-09-21 08:14 | Inpatient (IN) | payer MEDICARE, OTHER ==
--- NOTE | 2019-09-21 08:29 | CT ---
CT Head without IV contrast COMPARISON: 12/16/2018 HISTORY: Level 1 stroke alert. Right-sided facial droop and slurred speech. TECHNIQUE: Axial CT imaging at 5 mm intervals from vertex through skull base without contrast FINDINGS: There is no evidence of an acute infarction, hemorrhage, mass effect, or midline shift. There is decr eased attenuation seen in the periventricular white matter which is nonspecific but likely attributable to chronic small vessel ischemic changes which is not significantly progressed from prio r study. Bilateral basal ganglia calcifications are again noted.. There is mild cerebral volume loss. The ventricular system is normal in size, shape, and position for the degree of sulcal atrophy. Visualized paranasal sinuses are clear. Osseous structures appear intact. IMPRESSION: 1. No acute intracranial abnormality demonstrated. 2. Chronic small vessel ischemic changes and cerebral volume loss similar to prior exam. 3. Above findings discussed with Dr. Riggs in the emergency department on 09/21/2019 at 0826 hours.
[2019-09-21] MEDS ORDERED: Aspirin Chewable 81 MG TAB ONE (08:31)
[2019-09-21 08:47] LABS: Prothrombin Time 13.2 SEC (12.0-14.7)
[2019-09-21 08:47] LABS: #Basophils 0.1 thou/uL (0.0-0.2); #Eosinphils 0.4 thou/uL (0.0-0.7); #Lymphocytes 1.3 thou/uL (1.20-3.40); #Monocytes 0.6 thou/uL (0.11-0.59); #Neutrophils 5.2 thou/uL (1.40-6.50); %Basophils 0.8 % (0.0-1.0); %Eosinophils 5.4 % (0.0-10.0); %Lymphocytes 16.7 % (21.0-51.0); %Monocytes 7.5 % (0.0-10.0); %Neutrophils 69.7 % (42.0-75.0); Hemoglobin 11.9 g/dL (14.0-18.0); Mean Corpuscular HGB CONC 32.2 g/dL (32.0-36.0); Mean Corpuscular Volume 99.3 fL (78.0-98.0); Mean Platelet Volume 8.4 fL (7.4-10.4); Platelet Count 195 thou/uL (130-400); RBC Distribution Width 15.1 % (11.5-14.5); Red Blood Cell (RBC) Count 3.73 mill/uL (4.70-6.10); White Blood Cell (WBC) Count 7.5 thou/uL (4.8-10.8)
[2019-09-21 08:48] LABS: PTT 31.9 SEC (22.9-36.1)
[2019-09-21 08:56] LABS: Acetaminophen Less than 6.0 mcg/mL (10.0-30.0); Alcohol Less than 10 mg/dL (Less than 10); Lipase 32 U/L (8-78); Magnesium 2.1 mg/dL (1.6-2.6); Salicylate Less than 8.0 mg/dL (15.0-30.0)
[2019-09-21 08:58] LABS: ALT (SGPT) 12 U/L (8-55); AST (SGOT) 16 U/L (5-34); Alkaline Phosphatase 139 U/L (40-110); Anion Gap 17 mmol/L (10-20); BUN (Urea Nitrogen) 19 mg/dL (8.4-25.7); Bilirubin, Total 0.5 mg/dL (0.2-1.2); Calc. Creatinine Clearance 0 mL/min (70-130); Calcium 9.7 mg/dL (7.8-10.44); Carbon Dioxide 23 mmol/L (23-31); Chloride 101 mmol/L (98-107); Estimated GFR-MDRD 10; Glucose 76 mg/dL (83-110); Sodium 137 mmol/L (136-145)
--- NOTE | 2019-09-21 09:03 | CT ---
EXAM: CT angiogram head and neck with IV contrast and 3-D reconstruction PROVIDED CLINICAL HISTORY: Level 1 stroke alert. Right-sided facial droop and slurred speech. COMPARISON: None FINDINGS: Vascular calcifications are seen in the aortic arch. There is a common origin of the innominate arter y and left common carotid artery. Otherwise, there is a normal arrangement of the great vessels at the aortic arch which are patent. Atherosclerotic calcifications are seen within the great vessels. T he left subclavian artery is patent. Portion of the right subclavian artery is obscured due to dense contrast in the subclavian vein. The right common carotid artery is patent with mild atherosclerotic plaque and calcifications present . Eccentric atherosclerotic plaque is seen within the distal left common carotid artery with luminal narrowing approaching 50%. The bilateral internal carotid arteries are patent. Each internal carotid artery deviates medially at the level of the C2-3 level. A prominent kink is present within the right internal carotid artery secondary to the tortuosity, but no focal significant stenosis is seen in either internal carotid art yulisa. Atherosclerotic calcifications are seen at the origin of the right vertebral artery, but the vertebra l arteries are otherwise patent and codominant bilaterally. The basilar artery and posterior cerebral arteries are patent bilaterally. Atherosclerotic irregularity is seen in the internal carotid arteries and the carotid siphons greater on the right with mild degrees of narrowing present. The bilateral middle cerebral and anterior cerebral arteries are patent. Anterior communication artery is visualized and patent. No focal stenos is or branch occlusion is seen. No intracranial aneurysm is seen within the limitations of the technique of this examination. There is incomplete visualization of a moderate-sized right pleural effusion and atelectasis in the v isualized upper lung zones. There is a mildly enlarged right paratracheal lymph node measuring 11 mm in short axis dimension which is overall nonspecific. Multilevel degenerative changes are seen in the cervical spine. Minimal mucosal thickening is seen in each maxillary antrum. There is a minimal defect in the right m edial orbital wall which may be developmental in origin. Mastoid air cells are clear. IMPRESSION: 1. Eccentric atherosclerotic plaque seen in the left common carotid artery resulting in luminal narro wing which approaches 50%. 2. Patent bilateral internal carotid arteries with mild atherosclerotic irregularity in the region of the carotid siphons. 3. Patent bilateral vertebral arteries. 4. No focal stenosis or branch occlusion is seen involving the [place] or vertebrobasilar sy stem. 5. Partially visualized moderate size right pleural effusion. 6. Nonspecific mildly enlarged right paratracheal lymph node. 7. Above findings discussed with Dr. Riggs in the emergency department on 09/21/2019 at 0851 hours.
[2019-09-21 09:19] LABS: CKMB 1.9 ng/mL (0-6.6)
[2019-09-21] MEDS ORDERED: Senokot S 8.6-50 MG TAB PO PRN (09:57)
[2019-09-21] MEDS ORDERED: Bisacodyl 5 MG TAB PO PRN (09:57)
--- NOTE | 2019-09-21 11:15 | RAD ---
Exam: XR Shoulder Rt 3 View STANDARD HISTORY: Right shoulder pain after a fall. COMPARISON: 08/19/2018 FINDINGS: There is stable mild widening of the right acromioclavicular joint similar to prior exam. No acute fr acture or dislocation is seen. Right internal jugular vein tunneled hemodialysis catheter remains in place. No acute fracture, dislocation, or other acute osseous abnormality is identified. IMPRESSION: 1. Persistent widening of the right acromioclavicular joint suggesting prior AC separation and injury . 2. No acute osseous abnormality.
--- NOTE | 2019-09-21 11:22 | RAD ---
EXAM: XR Lumbar Spine 2 Or 3 View PROVIDED CLINICAL HISTORY: Low back pain COMPARISON: None FINDINGS: There are 5 nonrib-bearing lumbar-type vertebral bodies. Multilevel prominent osteophytes are present involving the lumbar spine. There is slight anterolisthesis of L4 on L5 with slight retrolisthesis of L2 on L3. There does appear to be slight height loss involving the anterior aspect of the L1 verte bral body, but this is probably related to prominent endplate degenerative changes along the inferior endplate of the vertebral body. There is otherwise no evidence of fracture. Multilevel facet degenerative changes are present. Vacuum phenomenon is seen in the L2-3 intervertebral disc. Vascular calcifications overlie the pelvis. IMPRESSION: Multilevel degenerative changes lumbar spine with slight anterolisthesis of L4 on L5 and trace retrol isthesis of L2 on L3.
--- NOTE | 2019-09-21 11:34 | RAD ---
PORTABLE CHEST ONE VIEW: HISTORY: Injury from a fall. COMPARISON: 02/01/2018 FINDINGS: Right-sided venous access catheter. Minimal blunting of the right costophrenic angle and some minimal pleural and parenchymal opacity changes in the right base. No pneumothorax. IMPRESSION: Very minimal pleural and parenchymal opacity changes in the right base, nonspecific. No evidence for other significant acute process. POS: [facility]
[2019-09-21 12:04] LABS: Troponin I 0.078 ng/mL (< 0.028)
[2019-09-21 13:23] VITALS: BMI 25.4
[2019-09-21] MEDS ORDERED: Iopamidol-370 76% 500 ML 1 ML ONE (13:42)
--- NOTE | 2019-09-21 15:19 | HP ---
CHIEF COMPLAINT: Possible fall, possible stroke. HISTORY OF PRESENT ILLNESS: The patient is a 74-year-old male with history of end-stage renal disease, on dialysis, who presents to the hospital with possible stroke. Per ER, the patient was found to have some right-sided facial droop and some right-sided weakness. He was last seen normal last night. He fell this morning and so decided to bring him to the hospital for further evaluation. Upon talking to the patient, the patient stated that he did not lose consciousness. He just was trying to go to the bathroom with a walker and turn and that is when he fell. He also further states that he has been having a right upper extremity weakness, which has been going on for months and also in his right lower extremity, he has been having some pain in his right leg because of the lower back pain. His speech did appear slow and no facial droop was noted. PAST MEDICAL HISTORY: He has a history of, 1. End-stage renal disease, on dialysis Sunday, Sunday, and Sunday. 2. Hypertension. 3. Hyperlipidemia. 4. Alcohol abuse. 5. Anxiety, depression. 6. CAD. PAST SURGICAL HISTORY: He has had, 1. Cardiac stent x1. 2. Lumbar spine surgery. 3. Bilateral rotator cuff repair. 4. Hemodialysis catheter placement. 5. Status post laparotomy of stomach perforation. His primary care is Pravin Alcantar. His counter server as I mentioned is Dr. Hewitt. ALLERGIES: NO KNOWN DRUG ALLERGIES. MEDICATIONS: This is per his last discharge; 1. Bupropion XL 300 mg daily. 2. PhosLo 1334 mg t.i.d. 3. Tums 400 mg q.i.d. 4. Ativan 0.5 mg q.8 hours. 5. Losartan 50 mg at bedtime. 6. Protonix 40 mg daily. 7. Mirapex 0.25 daily. 8. Flomax 0.4 mg daily. 9. Tramadol as needed. 10. Trazodone 100 mg at bedtime. FAMILY HISTORY: One brother has liver cancer. Mother has coronary artery disease, with complications of CAD. Father had diabetes. SOCIAL HISTORY: He lives with his nephew in [place], [place]. I did try to call the nephew to get more of a better history; however, his mailbox was full. No illicit drug use. No tobacco history. His last alcoholic beverage was in February 2018. REVIEW OF SYSTEMS: All negative except for the ones mentioned above in the HPI. PHYSICAL EXAMINATION: VITAL SIGNS: As of the following; temperature of 97.5, pulse 69, blood pressure 163/83, respiratory rate 18, and oxygen saturation 100% on room air. GENERAL: He is awake, alert, and oriented x3, however, is very slow to response. CARDIOVASCULAR: S1 and S2 present. No murmurs, rubs, or gallops. LUNGS: Clear to auscultation. No rhonchi or wheezes noted. ABDOMEN: Soft and nontender. Bowel sounds are present x2. He has a right-sided chest wall tunneled catheter. EXTREMITIES: No edema. Pedal pulses are present x2. NEUROVASCULAR: Neurovascular-leon, he is able to follow commands. He is unable to lift his right arm and states that he has been having some pain to his right arm also. His right lower extremity is also much more weaker. I am not sure if this is new or this is old. No facial droop was noted. Cerebellum test unable to do. The patient could not do the coordination. Sensation of bilateral upper extremity and lower extremity intact. DIAGNOSTIC DATA: His laboratory results are as of the following; WBCs of 7.5, hemoglobin of 11.9, hematocrit of 37.1, and his platelets are 195. Chemistries; sodium of 137, potassium of 4.0, BUN of 19, and creatinine of 5.69. His alkaline phosphatase is 139. His troponin is 0.089. His Mag is 2.1. His lipase is 32. He did have a CTA and a CT brain. CT brain did not show any acute abnormalities. However, the CTA did indicate that he does have some eccentric atherosclerotic plaque in the left common carotid with some narrowing approaching 50%. Bilateral internal carotid arteries have mild atherosclerotic irregularities in the carotid siphons. Patent bilateral vertebral arteries, no focal stenosis or branch occlusion of the [place]. Nonspecific mildly enlarged right paratracheal lymph node that has been noted. Chest x-ray, upon my interpretation, there seems to be some sort of possible some haziness on his right lower lung area. However, I am not sure he does not have a white count, does not have a cough. I will wait for the official read and then follow up with that. ASSESSMENT AND PLAN: The patient is a 74-year-old male, who presents to the hospital with complaints of a fall, possible stroke. 1. Possible transient ischemic attack versus stroke. The patient's family stated that he had some right-sided weakness. He was stroke alert. Again as I mentioned, his right upper extremity has been weak. It is not new. His right lower extremity is also a little bit weaker than the left. I am not sure this is new or old. I tried to call the nephew and I tried to leave a message, however, his message box was full. CT head again did not show any acute abnormalities. We will get an MRI brain. We will do a full stroke workup on him. We will put him on aspirin and a statin. He may require Plavix. We will get Neurology to see him. 2. Generalized weakness. I ordered blood cultures. He does have some sort of kind of haziness on his right lower lung. I am not sure what to make of that. Again, he does not have leukocytosis. I will check a procalcitonin level. If it is negative, we will not put him on any antibiotics. If not, I will treat him prophylactically if the procalcitonin is positive. 3. End-stage renal disease, on dialysis. I will consult Nephrology. 4. Right lower leg pain and shoulder pain. I will get a shoulder x-ray and a lumbar spine x-ray just for further evaluation. 5. Mildly elevated troponin. This could be demand related. We will try to repeat another one or trend it and continue to monitor. 6. Deep venous thrombosis prophylaxis. I will put on subcu heparin. Job ID: [id number]
--- NOTE | 2019-09-21 15:45 | MRI ---
MRI brain noncontrast HISTORY: Right facial droop. Slurred speech. FINDINGS: There is no evidence of acute intracranial hemorrhage or infarct. Physiologic calcification of the basal ganglia. Mild chronic ischemic small vessel disease within the periventricular white matter. Mild to moderate diffuse cortical atrophy. There is no mass effect or shift of midline struct ures. Mucosal thickening is evident within the mastoid air cells. IMPRESSION: Chronic ischemic small vessel disease. No acute intracranial abnormalities are demonstrat ed.
[2019-09-21] MEDS: Calcium Acetate 667 MG CAP PO SCH ×2 (16:22→18:30)
[2019-09-21] MEDS: Acetaminophen 325 MG TAB PO PRN ×2 (16:22→20:49)
[2019-09-21] MEDS: Calcium Carbonate 500 MG ChewTAB PO SCH ×3 (16:22→20:45)
[2019-09-21 16:27] LABS: Troponin I 0.053 ng/mL (< 0.028)
[2019-09-21] MEDS: Pramipexole Di-HCl 0.25 MG TAB PO SCH (20:45)
[2019-09-21] MEDS: traZODone HCl 50 MG TAB PO SCH (20:45)
[2019-09-21] MEDS: Atorvastatin Calcium 40 MG TAB PO SCH (20:46)
[2019-09-22] MEDS ORDERED: Carvedilol 6.25 MG TAB PO SCH (04:00)
[2019-09-22] MEDS: Acetaminophen 325 MG TAB PO PRN ×2 (04:10→14:05)
[2019-09-22 04:48] LABS: #Eosinphils 0.4 thou/uL (0.0-0.7); #Lymphocytes 1.1 thou/uL (1.20-3.40); #Monocytes 0.4 thou/uL (0.11-0.59); #Neutrophils 4.2 thou/uL (1.40-6.50); %Basophils 0.6 % (0.0-1.0); %Eosinophils 6.4 % (0.0-10.0); %Lymphocytes 17.9 % (21.0-51.0); %Monocytes 6.6 % (0.0-10.0); %Neutrophils 68.5 % (42.0-75.0); Hemoglobin 10.9 g/dL (14.0-18.0); Mean Corpuscular HGB CONC 32.4 g/dL (32.0-36.0); Mean Corpuscular Volume 98.7 fL (78.0-98.0); Mean Platelet Volume 8.4 fL (7.4-10.4); Platelet Count 203 thou/uL (130-400); RBC Distribution Width 15.6 % (11.5-14.5); Red Blood Cell (RBC) Count 3.41 mill/uL (4.70-6.10); White Blood Cell (WBC) Count 6.2 thou/uL (4.8-10.8)
[2019-09-22] MEDS: hydrALAZINE 20 MG/ML VIAL SLOW IVP PRN ×2 (04:50→21:49)
[2019-09-22 05:12] LABS: Anion Gap 14 mmol/L (10-20); BUN (Urea Nitrogen) 24 mg/dL (8.4-25.7); Calc. Creatinine Clearance 10 mL/min (70-130); Calcium 9.8 mg/dL (7.8-10.44); Carbon Dioxide 26 mmol/L (23-31); Cardiac Risk 2.6 (Less than 4.5); Chloride 100 mmol/L (98-107); Cholesterol 106 mg/dl (< 200 Desired); Estimated GFR-MDRD 8; HDL Cholesterol 41 mg/dL (>60 Neg Risk); LDL Cholesterol, Calculated 37 mg/dL; Potassium 4.2 mmol/L (3.5-5.1); Sodium 136 mmol/L (136-145); Triglycerides 142 mg/dL (Less than 150)
[2019-09-22 05:16] LABS: Glucose 57 mg/dL (83-110)
[2019-09-22] MEDS ORDERED: Lorazepam 0.5 MG TAB PO PRN (07:20)
[2019-09-22] MEDS ORDERED: Gabapentin 100 MG CAP PO PRN (07:20)
[2019-09-22] MEDS ORDERED: Dextrose 5% in Water 1,000 ML IV PRN (07:22)
[2019-09-22] MEDS ORDERED: Dextrose 50% Abboject 50 ML SYRINGE SLOW IVP PRN (07:22)
--- NOTE | 2019-09-22 07:26 | PDOC.HOSPP ---
- Subjective Encounter Date: 09/22/19 Encounter Time: 10:00 Subjective: Patient with complaint of low back pain worsening over past few weeks, bilateral leg weakness for 2 weeks. Presented with fall from legs giving out. Denies focal weakness. Has had back surgery before. - Objective Vital Signs & Weight: Vital Signs (12 hours) Temp Pulse Resp BP BP Pulse Ox 09/22/19 05:00 180/88 H 09/22/19 04:50 81 196/86 H 09/22/19 04:00 98.1 F 83 18 207/98 H 95 09/22/19 03:36 81 200/84 H 09/21/19 23:28 98.2 F 80 18 177/91 H 100 09/21/19 20:00 73 L 09/21/19 19:38 97.4 F L 73 20 174/86 H 100 Weight Weight 157 lb 11.2 oz I&O: 09/21/19 09/22/19 09/23/19 06:59 06:59 06:59 Intake Total 786 Output Total 300 Balance 486 Result Diagrams: 09/22/19 04:34 09/22/19 04:34 Additional Labs: Accuchecks 09/22/19 09/21/19 09/21/19 05:47 10:34 08:31 POC Glucose 74 90 73 Hospitalist ROS - Review of Systems Constitutional: denies: fever, chills Respiratory: denies: cough, shortness of breath Cardiovascular: denies: chest pain, palpitations Gastrointestinal: denies: nausea, vomiting, abdominal pain Musculoskeletal: reports: back pain Neurological: reports: weakness. denies: numbness, incoordination, change in speech, confusion, seizures - Medication Medications: Active Medications Generic Name Dose Route Start Last Admin Trade Name Freq PRN Reason Stop Dose Admin Acetaminophen 650 mg 09/21/19 09:57 09/22/19 04:10 Tylenol PO 650 mg Q4H PRN Administration Headache/Fever/Mild Pain (1-3) Atorvastatin Calcium 40 mg 09/21/19 21:00 09/21/19 20:46 Lipitor PO 40 mg HS ELPIDIO Administration Calcium Acetate 1,334 mg 09/21/19 12:00 09/21/19 18:30 Phoslo PO 1,334 mg TID-WM ELPIDIO Administration Calcium Carbonate 500 mg 09/21/19 13:00 09/21/19 20:45 Tums PO 500 mg QID ELPIDIO Administration Hydralazine HCl 10 mg 09/22/19 03:59 09/22/19 04:50 Apresoline SLOW IVP 10 mg Q4H PRN Administration SBP Greater Than 170 Memantine 5 mg 09/21/19 21:00 09/21/19 20:46 Namenda PO 5 mg BID ELPIDIO Administration Pramipexole Dihydrochloride 0.25 mg 09/21/19 21:00 09/21/19 20:45 Mirapex PO 0.25 mg HS ELPIDIO Administration Trazodone HCl 100 mg 09/21/19 21:00 09/21/19 20:45 Desyrel PO 100 mg HS ELPIDIO Administration - Exam General Appearance: NAD, awake alert ENT: moist mucosa Heart: RRR, no murmur, no gallops, no rubs Respiratory: CTAB, no wheezes, no rales, no ronchi Gastrointestinal: soft, non-tender, non-distended, normal bowel sounds Extremities: no edema Neurological: cranial nerve grossly intact, normal sensation to touch, no focal deficits Psychiatric: normal affect, normal behavior, A&O x 3 Hosp A/P (1) TIA (transient ischemic attack) Code(s): G45.9 - TRANSIENT CEREBRAL ISCHEMIC ATTACK, UNSPECIFIED Status: Acute (2) Hypertensive urgency Code(s): I16.0 - HYPERTENSIVE URGENCY Status: Acute (3) Hypoglycemia Code(s): E16.2 - HYPOGLYCEMIA, UNSPECIFIED Status: Acute (4) ESRD (end stage renal disease) on dialysis Code(s): N18.6 - END STAGE RENAL DISEASE; Z99.2 - DEPENDENCE ON RENAL DIALYSIS Status: Chronic (5) H/O alcohol abuse Code(s): Z87.898 - PERSONAL HISTORY OF OTHER SPECIFIED CONDITIONS Status: Chronic - Plan Patient with uncontrolled blood pressure. May have had a TIA but no exam findings consistent with a significant stroke at this time. MRI negative. Will restart home BP meds. Weakness mostly in bilateral legs, worsening for 2 weeks with worsening low back pain. Will check MRI back in case of stenosis, need for neurosurg. Nephrology consult to manage dialysis. Neurology consult. PT/OT Hypoglycemia on venous sample this AM, recheck FSBS normal. No history of diabetes. Will check FSBS for the next day or so to make sure blood sugars are ok. DVT Proph: SCDs, no Enoxaparin due to ESRD
[2019-09-22] MEDS ORDERED: FLU VACC TS2019-20(65YR UP)/PF 180 MCG/0.5 ML SYRINGE IM ONE (09:00)
[2019-09-22] MEDS ORDERED: Non-Formulary Item 1 EACH (Losartan Potassium [Losartan Potassium] 100 MG) PO SCH (09:00)
[2019-09-22] MEDS ORDERED: Enoxaparin Sodium 40 MG/0.4 ML SYRINGE SC SCH (09:00)
[2019-09-22] MEDS: Carvedilol 6.25 MG TAB PO SCH ×2 (09:13→21:23)
[2019-09-22] MEDS: Calcium Acetate 667 MG CAP PO SCH ×3 (09:14→18:49)
[2019-09-22] MEDS: Calcium Carbonate 500 MG ChewTAB PO SCH ×4 (09:14→21:36)
[2019-09-22] MEDS ORDERED: Heparin 10,000 UNITS/ 10 ML VIAL ONE (10:51)
--- NOTE | 2019-09-22 11:59 | MRI ---
MR the lumbar spine without contrast INDICATION: History of fall with right-sided facial droop, right arm drift and slurred speech; low ba ck pain and leg weakness also COMPARISON: Lumbar spinal radiograph dated September 21, 2019 TECHNIQUE: Multiplanar multisequence MR images were obtained of lumbar spine without IV contrast. FINDINGS: Bone marrow: There is abnormal edema involving the superior aspect of L2 and diffusely throughout the L1 vertebral level with prominent endplate irregularity and erosive change centered at the L1-L2 intervertebral disc level. There is postprocedural change of a laminectomy at L4. Distal spinal cord and conus: There is prominent compression of the distal spinal cord and conus at L 1-L2 due to suspected epidural abscesses. Please see below. The conus seen to terminate at L1. Visualized retroperitoneum and paraspinal soft tissues: There is a 2.1 cm cyst involving the superior pole of the left kidney. There are multiple left-sided renal cysts. An additional 1.6 cm cyst is seen involving inferior pole of left kidney. There is prominent paravertebral soft tissue edema invol ving the proximal so asked and paravertebral soft tissues at L1-L2. Vertebral levels: L5-S1: There is mild facet joint degenerative change and a broad-based bulge inducing mild neural for aminal narrowing. L4-5: There is grade 1 spondylolisthesis of L4 and L5 with a broad-based pseudobulge and facet hypert rophy. Constellation of findings induces mild to moderate bilateral neural foraminal narrowing. L3-4: There is broad-based bulge with facet hypertrophy inducing mild/moderate bilateral neural sully inal narrowing L2-3: There is a broad-based bulge with facet hypertrophy inducing severe central canal narrowing wit h moderate to severe bilateral neural foraminal narrowing. L1-L2: There is a prominent, intermediate T1, T2 hyperintense epidural collection involving the anter ior aspect of the epidural space at L1-L2 inducing severe central canal narrowing, best seen on image 12 of series 6 and image 10 of series 3. There is prominent perivertebral soft tissue edema and edematous changes involving the proximal silhouette is musculature. T12-L1: No appreciable central canal or neuroforaminal narrowing. IMPRESSION: 1. Findings of discitis osteomyelitis at L1-L2 with prominent epidural fluid like collection seen in the anterior epidural space at L1-L2 inducing severe central canal narrowing and moderate compression of the distal spinal cord and conus. Findings were called to Dr. Barone at 11:45 AM on 09/22. Neurosurgical consultation is recommended. 2. Severe central canal narrowing at L2-3 due to a broad-based disc bulge and facet hypertrophy. Ther e is moderate to severe bilateral neural foraminal narrowing at L2-3. 3. Mild to moderate bilateral neural foraminal narrowing at L3-4 and L4-5. 4. Postprocedural change of a laminectomy at L4.
[2019-09-22] MEDS ORDERED: Vancomycin HCl 1 GM in Premix Bag 1 BAG IVPB SCH (12:15)
[2019-09-22] MEDS ORDERED: Vancomycin 1.5 GRAM/300 ML BAG 1.5 GM in Premix Bag 1 BAG IVPB SCH (12:15)
[2019-09-22] MEDS ORDERED: Vancomycin HCl 750 MG in Sodium Chloride 0.9% 250 ML 250 ML IVPB SCH (12:15)
[2019-09-22] MEDS ORDERED: Vancomycin HCl 1.25 GM in Sodium Chloride 0.9% 250 ML 250 ML IVPB SCH (12:15)
[2019-09-22] MEDS ORDERED: Vancomycin HCl 500 MG in Sodium Chloride 0.9% 100 ML IVPB SCH (12:15)
[2019-09-22] MEDS ORDERED: HOLD VANCOMYCIN FOR LEVEL >20 FS SCH (12:15)
[2019-09-22] MEDS: HYDROcodone/Acetaminophen 7.5/325 mg Tablet PO PRN ×2 (12:16→21:22)
[2019-09-22] MEDS: Bupropion 150 MG XL TAB PO SCH (12:32)
[2019-09-22] MEDS: Aspirin 81 mg Enteric Coated Tablet PO SCH (12:32)
[2019-09-22] MEDS: Tamsulosin HCl 0.4 MG CAP PO SCH (12:33)
[2019-09-22] MEDS: Losartan 25 MG TAB PO SCH (12:33)
--- NOTE | 2019-09-22 12:49 | PRG ---
DATE OF SERVICE: 09/22/2019 SUBJECTIVE: Mr. Araiza is a 74-year-old male with ESRD - on maintenance hemodialysis, admitted for possible CVA. He is currently undergoing hemodialysis. I have scheduled him for his regular hemodialysis on Sunday, Sunday, and Sunday. This morning, he is feeling better. Please note that the initial MRI of the brain showed no acute intracranial abnormality, but is chronic ischemic small vessel disease. The patient denies any chest pain or shortness of breath. OBJECTIVE: VITAL SIGNS: Blood pressure 178/90, heart rate 82, respiratory rate 14, temperature 97.2, and O2 saturation 98%. GENERAL: The patient is awake, alert, and comfortable, not in distress. SKIN: Adequate turgor. HEENT: He has a pinkish conjunctivae. Anicteric sclerae. NECK: No neck mass. No carotid bruits. No JVD. CHEST: No deformities. LUNGS: Clear breath sounds. HEART: Normal sinus rhythm. No murmur. No gallops. No rubs. ABDOMEN: Globular, soft, and nontender. No masses. EXTREMITIES: No edema. No deformities. MEDICATIONS: Medications of September 22, 2019, was reviewed. LABORATORY DATA: Laboratories of September 22, 2019, white count 6.2 and hemoglobin 10.9. Sodium 136, potassium 4.2, chloride 100, carbon dioxide 26, BUN 24, creatinine 6.76, glucose 57, and calcium 9.8. ASSESSMENT AND PLAN: 1. Transient ischemic attack/cerebrovascular accident - supportive care. Neurology consult has been done. 2. End-stage renal disease, stable. We will continue current hemodialysis regimen. Fluid removal only as tolerated. No indication for any Epogen at the present time. Agree with current management. Job ID: [id number]
[2019-09-22] MEDS ORDERED: Tamsulosin HCl 0.4 MG CAP PO SCH (16:15)
[2019-09-22] MEDS ORDERED: Losartan 25 MG TAB PO SCH (16:15)
[2019-09-22] MEDS ORDERED: Aspirin 81 mg Enteric Coated Tablet PO SCH (16:15)
[2019-09-22] MEDS ORDERED: Bupropion 150 MG XL TAB PO SCH (16:15)
[2019-09-22] MEDS: NIFEdipine XL 60 MG TAB PO SCH (18:49)
[2019-09-22] MEDS: Atorvastatin Calcium 40 MG TAB PO SCH (21:36)
[2019-09-22] MEDS: Pramipexole Di-HCl 0.25 MG TAB PO SCH (21:36)
[2019-09-22] MEDS: traZODone HCl 50 MG TAB PO SCH (21:36)
--- NOTE | 2019-09-22 22:04 | CON ---
DATE OF CONSULTATION: 09/22/2019 REASON FOR CONSULTATION: Lumbosacral spine infection. HISTORY OF PRESENT ILLNESS: A 74-year-old patient who has a history of hypertension, hyperlipidemia, and coronary artery disease with end-stage renal disease of uncertain etiology, who has had progressively worsening back pain over the past 2 months. He initially did not go to see a physician, but eventually due to the exacerbation of the symptom ended up in the emergency room. On arrival, he did have what is described as right-sided weakness and right facial droop and most of the initial emphasis was geared towards evaluation for the CVA. So the patient had a brain MRI which did not show any evidence of CVA. Subsequently, the back pain symptom became the predominant concern and a lumbar spine MRI was carried out and it demonstrated quite significant changes with diskitis, osteomyelitis L1-L2 with epidural fluid collection in the anterior epidural space at L1 and L2 with severe central canal narrowing. There was also severe central canal narrowing at L2- L3 due to a disk bulge. The patient had a laminectomy at L4. The patient was admitted and has been started on vancomycin sliding scale. He is having quite a bit of pain, still minimal movement will elicit discomfort. Denies any headaches. No visual symptoms, sore throat, odynophagia, dysphagia. No dyspnea or chest pain. No abdominal pain. Still has some urine output but not very much. He has been dialyzed at the moment through a tunneled hemodialysis catheter in the right IJ position for the past 2 years. PAST MEDICAL HISTORY: End-stage renal disease of uncertain etiology on hemodialysis for the past 2 years with a hemodialysis catheter accessed due to failure of establishment of AV fistula, hyperlipidemia, hypertension, coronary artery disease. There was history of alcoholism in the past as well. PAST SURGICAL HISTORY: Includes cardiac stent, lumbar spine laminectomy in the past at L4, hemodialysis catheter placement, stomach ulcer with perforation which required laparotomy. ALLERGIES: NONE. FAMILY HISTORY: Liver cancer, coronary artery disease, diabetes type 2. SOCIAL HISTORY: Never smoker. His alcoholism is in remission since March 16. CURRENT MEDICATIONS: 1. We have discussed the vancomycin. 2. He is also on Coreg. 3. Tums. 4. PhosLo. 5. Neurontin. 7. Apresoline. 8. Cozaar. 9. Namenda. 10. Procardia. 11. Mirapex. 12. Flomax. PHYSICAL EXAMINATION: VITAL SIGNS: T-max 98.2, BP 170/90, pulse 82, respirations 14, O2 saturation 98. SKIN: With a tunneled hemodialysis catheter in the right IJ position. He does not have any other catheters. No areas of skin breakdown. No lymphadenopathy. HEENT: Ocular movements conjugate. Oral cavity was not remarkable. NECK: Supple. No jugular venous distention. LUNGS: Symmetric air entry. No crackles or wheezing. HEART: S1, S2. Regular rate without murmurs. ABDOMEN: Soft. Not distended or tender. No ascites. EXTREMITIES: Marked tenderness on lumbosacral spine area. No joint effusion. Pulses 1+ in dorsalis pedis. No edema. Plantar responses are flexor. NEUROLOGIC: At the moment of the examination, there is no evidence of any residual weakness in the right or left side. His cognitive function appears to be intact. LABORATORY DATA: White cell count 7.5, hemoglobin 11.9, platelets 195 with 69% neutrophils. Creatinine 6.76. Alkaline phosphatase 139. Transaminases and bilirubin normal. Albumin 4.0. Coagulase-negative staph in 1 out of 2 sets of blood cultures likely contaminants of the sample. Urine culture with 10 to 250, 00 CFUs of mixed skin seth. IMAGING STUDIES: Brain MRI showed microvascular disease. CT of [place], angio with contrast with atherosclerotic plaque in the left common carotid artery with luminal narrowing. Some atherosclerotic irregularity in the region of the carotid siphons. ASSESSMENT: End-stage renal disease of uncertain etiology, hypertension, coronary artery disease, chronic back pain with exacerbation lately. MRI findings suggestive of infection of the L1-L2 disk space with extension into the bone and epidural space with [id number] compression. DISCUSSION: This is a very common problem related possibly to vascular access or other sources of bacteremia. The coagulase-negative Staph is likely contaminant rather than true pathogen, although the final results of cultures are not yet displayed. It is possible that the hemodialysis catheter is colonized by bacteria that migrated to the spine. In that regard, I would probably sample the hemodialysis catheter 2 more sets next dialysis. Treatment course will include vancomycin which will allow administration at dialysis and we will add quinolone either Cipro or Levaquin to adjust it for renal function to increase the spectrum of coverage to include gram-negative rods as well. Usual pathogens including Staphylococcus aureus/MRSA, streptococci, and gram-negative rods including Enterobacteriaceae. Fungal and mycobacterial pathogens are less likely but will have to be considered depending on the clinical response. Typically one sees improvement of pain over the course of the next 2 weeks. Some patients will remain with significant amount of pain for much longer period of time. Sometimes surgical intervention becomes necessary because of lack of clinical response, not only for decompressive surgery, but also for sampling and cultures. If the repeat blood cultures remain positive for an organism, we will have to consider replacing the hemodialysis catheter. Job ID: [id number] [facility]
--- NOTE | 2019-09-22 23:34 | CON ---
DATE OF CONSULTATION: 09/22/2019 CHIEF COMPLAINT: Low back pain, bilateral leg weakness. HISTORY OF PRESENT ILLNESS: Mr. Araiza is a pleasant 74-year-old gentleman with reports of low back pain and bilateral leg weakness. MRI of the lumbar spine revealed osteodiscitis and likely lumbar epidural abscess with associated lumbar stenosis. The patient also has blood cultures with preliminary pathology of coagulase-negative Staphylococcus. Also, there was apparently concern for stroke given facial droop. Imaging of the brain was negative for any infarct or hemorrhage. The patient states that his low back pain has been chronic for approximately 8 months, associated with leg weakness. He states that his leg weakness has progressed over the last week. Upon some discussion with his nephew who is his medical power of real estate attorney, it was reported that the weakness acutely worsened last night when he became unable to stand or walk. The patient's nephew notes the patient was seen at [facility] approximately 6-8 weeks ago, and at that time was diagnosed with an infection and placed on antibiotics. He also was referred to Dr. Cabrera with Pain Management and has since received 1 or 2 epidural steroid injections. The patient has a prior history of lumbar surgery approximately 10 years ago that was done at an outside institution in [place], [place]. He is unable to state what surgery was performed, however he denies any hardware placement. The patient reports pain in his lower back with radiation into his bilateral anterior thighs, but does not extend past the knees. He reports numbness and tingling in the same distribution. Per report, patient has a right greater than left leg weakness. He denies any associated neck or upper back pain. He denies arm pain, but reports decreased range of motion in his shoulder related to rotator cuff injury. PAST MEDICAL HISTORY: Past medical history is significant for end-stage renal disease, on dialysis Mondays/Wednesdays/Fridays. Additionally, he has history of hypertension, hyperlipidemia, alcohol abuse, anxiety, depression, and coronary artery disease with a history of cardiac stenting. PHYSICAL EXAMINATION: GENERAL: The patient is awake, alert, and appropriate, although at times he becomes drowsy when not spoken to directly during phone conversation with his nephew. HEENT: PERRLA. EOMI. MUSCULOSKELTAL: Tenderness to palpation along the midline thoracic and lumbar spinous processes. Decreased ROM of shoulder. NEUROLOGIC: Cranial nerves 2-12 are grossly intact. Patient has 5/5 strength throughout his bilateral upper extremity myotomes. While patient is slow to move his legs, he does exhibit 5/5 strength throughout his bilateral lower extremity myotomes. Good strength in his iliopsoas, quadriceps, and hamstrings bilaterally. Good strength with dorsiflexion and plantar flexion of both feet. Sensation to light touch is intact and equal throughout his extremities. Gait was not assessed. IMPRESSION AND DIAGNOSES: 1. Lumbar osteodiscitis at L1-L2 with hyperintense ventral epidural fluid collection (likely epidural abscess) with central stenosis involving conus medullaris 2. Multilevel lumbar stenosis with lumbar radiculopathy. 3. End-stage renal disease, on hemodialysis. 4. Hypertension. 5. Hyperlipidemia. 6. Coronary artery disease. 7. Alcohol abuse. 8. Anxiety, depression. PLAN: At this time, I have reviewed this case and imaging with Dr. Dangelo. The patient had MRI of the lumbar spine without contrast completed that revealed findings of L1-L2 osteomyelitis/discitis with associated ventral hyperintense epidural fluid collection resulting in central and lateral recess stenosis. The patient also has severe lateral recess stenosis bilaterally at L2-L3. There are prior surgical changes at the L4 level indicating prior laminectomy. MRI of the brain was reviewed and no acute abnormalities were visualized. Given the patient's increased difficulty with walking, there is concern for the patient's mobilization status should his lumbar stenosis go untreated. Therefore urgent neurosurgical intervention is necessary. Plan is to take patient to surgery tomorrow for L1-L2 laminectomy with epidural abscess evacuation and decompression of the conus medullaris, as well as L2-L3 laminectomies, partial facetectomies, and foraminotomies. Additionally, we will consult [facility] ([facility] to obtain to a [facility] brace for patient to have postoperatively for ensured stabilization of the spine given the presence of osteodiscitits. Surgical plan was discussed with both the patient and with his medical power of real estate attorney (his nephew, Merlin) via phone call. The diagnosis, surgical procedure, and postoperative expectations were discussed at length. All questions answered at this time. The patient's nephew will arrive at the hospital tomorrow afternoon prior to patient's surgery. The patient will likely require extensive therapies and likely inpatient rehab stay postoperatively. This was discussed with both the patient and his nephew and they state understanding of this expectation. At this time, patient will be n.p.o. at midnight. We will re-evaluate patient in the morning. Please call for any neurologic changes or other concerns. This is a 50 minute initial visit in which greater than 50% of the time was spent in review of records, imaging, evaluation, examination, and formulation of plan. The remaining time was spent in counseling and coordination of care. Job ID: [id number] [facility]
[2019-09-23] MEDS: Acetaminophen 325 MG TAB PO PRN (04:17)
[2019-09-23] MEDS: HYDROcodone/Acetaminophen 7.5/325 mg Tablet PO PRN (06:33)
--- NOTE | 2019-09-23 07:23 | PDOC.HOSPP ---
- Subjective Encounter Date: 09/23/19 Encounter Time: 10:50 Subjective: Patient with improved low back pain after norco this AM. No fever or other complaints. Per family he had an epidural injection down for pain 3 weeks ago, possibly the source of infection. - Objective Vital Signs & Weight: Vital Signs (12 hours) Temp Pulse Resp BP BP Pulse Ox 09/23/19 04:40 98.2 F 86 16 183/96 H 98 09/23/19 00:00 98 F 88 16 161/88 H 94 L 09/22/19 21:49 86 191/97 H 09/22/19 21:23 202/96 H 09/22/19 21:00 99.6 F 87 16 202/96 H 97 09/22/19 20:29 98 F 85 18 186/96 H 95 Weight Admit Weight 157 lb 11.2 oz Weight 157 lb 11.2 oz I&O: 09/22/19 09/23/19 09/24/19 06:59 06:59 06:59 Intake Total 786 Output Total 300 Balance 486 Result Diagrams: 09/23/19 07:25 09/23/19 07:25 Additional Labs: Accuchecks 09/23/19 09/22/19 09/22/19 05:59 20:37 10:45 POC Glucose 108 182 H 147 H Hospitalist ROS - Review of Systems Constitutional: denies: fever, chills Respiratory: denies: cough, shortness of breath Cardiovascular: denies: chest pain, palpitations, orthopnea Gastrointestinal: denies: nausea, vomiting, abdominal pain Musculoskeletal: reports: back pain Neurological: reports: weakness - Medication Medications: Active Medications Generic Name Dose Route Start Last Admin Trade Name Freq PRN Reason Stop Dose Admin Acetaminophen 650 mg 09/21/19 09:57 09/23/19 04:17 Tylenol PO 650 mg Q4H PRN Administration Headache/Fever/Mild Pain (1-3) Hydrocodone Bitart/Acetaminophen 1 tab 09/22/19 07:20 09/23/19 06:33 [place] 7.5/325 PO 1 tab Q8H PRN Administration Pain Atorvastatin Calcium 40 mg 09/21/19 21:00 09/22/19 21:36 Lipitor PO 40 mg HS ELPIDIO Administration Calcium Acetate 1,334 mg 09/21/19 12:00 02/24/20 18:49 Phoslo PO 1,334 mg TID-WM ELPIDIO Administration Calcium Carbonate 500 mg 09/21/19 13:00 09/22/19 21:36 Tums PO 500 mg QID ELPIDIO Administration Carvedilol 6.25 mg 09/22/19 09:00 09/22/19 21:23 Coreg PO 6.25 mg BID ELPIDIO Administration Levofloxacin 250 mg 09/23/19 06:00 09/23/19 06:34 Levaquin PO 250 mg 0600 ELPIDIO Administration Memantine 5 mg 09/21/19 21:00 09/22/19 21:37 Namenda PO 5 mg BID ELPIDIO Administration Nifedipine 60 mg 09/22/19 12:00 09/22/19 18:49 Procardia Xl PO 60 mg 1200 ELPIDIO Administration Pramipexole Dihydrochloride 0.25 mg 09/21/19 21:00 09/22/19 21:36 Mirapex PO 0.25 mg HS ELPIDIO Administration Sodium Chloride 10 ml 09/21/19 09:51 09/22/19 09:15 Flush - Normal Saline IVF 10 ml PRN PRN Administration Saline Flush Trazodone HCl 100 mg 09/21/19 21:00 09/22/19 21:36 Desyrel PO 100 mg HS ELPIDIO Administration - Exam General Appearance: NAD, awake alert ENT: moist mucosa Heart: RRR, no murmur, no gallops, no rubs Respiratory: CTAB, no wheezes, no rales, no ronchi Gastrointestinal: soft, non-tender, non-distended, normal bowel sounds Psychiatric: normal affect, normal behavior Hosp A/P (1) Osteomyelitis of lumbar spine Code(s): M46.26 - OSTEOMYELITIS OF VERTEBRA, LUMBAR REGION Status: Acute (2) Abscess in epidural space of lumbar spine Code(s): G06.1 - INTRASPINAL ABSCESS AND GRANULOMA Status: Acute (3) Lumbar spinal stenosis Code(s): M48.061 - SPINAL STENOSIS, LUMBAR REGION WITHOUT NEUROGENIC CHINYERE Status: Acute (4) TIA (transient ischemic attack) Code(s): G45.9 - TRANSIENT CEREBRAL ISCHEMIC ATTACK, UNSPECIFIED Status: Ruled -out (5) Hypertensive urgency Code(s): I16.0 - HYPERTENSIVE URGENCY Status: Acute (6) Hypoglycemia Code(s): E16.2 - HYPOGLYCEMIA, UNSPECIFIED Status: Resolved (7) ESRD (end stage renal disease) on dialysis Code(s): N18.6 - END STAGE RENAL DISEASE; Z99.2 - DEPENDENCE ON RENAL DIALYSIS Status: Chronic (8) H/O alcohol abuse Code(s): Z87.898 - PERSONAL HISTORY OF OTHER SPECIFIED CONDITIONS Status: Chronic - Plan CVA ruled out with MRI brain. Weakness mostly in bilateral legs, worsening for 2 weeks with worsening low back pain. MRI lumbar spine with osteomyelitis, disciitis, epidural abscess, and severe spinal stenosis. Neurosurgery decompressing and draining today- scheduled for the afternoon. Dr. Contreras consulted, appreciate his assistance. Vancomycin and Levaquin since Nephrology managing dialysis. PT/OT Hypoglycemia on venous sample this AM, rechecked FSBS normal. No history of diabetes. Blood sugars normal since then. Can d/c regular checks. DVT Proph: SCDs, no Enoxaparin due to ESRD
[2019-09-23 07:32] LABS: #Eosinphils 0.4 thou/uL (0.0-0.7); #Lymphocytes 1.6 thou/uL (1.20-3.40); #Monocytes 0.6 thou/uL (0.11-0.59); #Neutrophils 4.4 thou/uL (1.40-6.50); %Basophils 0.5 % (0.0-1.0); %Lymphocytes 22.9 % (21.0-51.0); %Monocytes 8.5 % (0.0-10.0); %Neutrophils 62.1 % (42.0-75.0); Hemoglobin 11.7 g/dL (14.0-18.0); Mean Corpuscular HGB CONC 32.9 g/dL (32.0-36.0); Mean Corpuscular Hemoglobin 32.6 pg (27.0-31.0); Mean Platelet Volume 7.7 fL (7.4-10.4); Platelet Count 163 thou/uL (130-400); RBC Distribution Width 16.2 % (11.5-14.5); White Blood Cell (WBC) Count 7.1 thou/uL (4.8-10.8)
[2019-09-23 07:54] LABS: Anion Gap 13 mmol/L (10-20); BUN (Urea Nitrogen) 11 mg/dL (8.4-25.7); Calc. Creatinine Clearance 15 mL/min (70-130); Calcium 9.2 mg/dL (7.8-10.44); Carbon Dioxide 27 mmol/L (23-31); Chloride 96 mmol/L (98-107); Estimated GFR-MDRD 13; Glucose 60 mg/dL (83-110); Potassium 4.2 mmol/L (3.5-5.1); Sodium 132 mmol/L (136-145)
[2019-09-23] MEDS ORDERED: Dexamethasone 20 MG/5 ML VIAL ONE (09:00)
[2019-09-23] MEDS ORDERED: Rocuronium Bromide 10 MG/ML (10ML VIAL) ONE (09:00)
[2019-09-23] MEDS ORDERED: PROPOFOL 200 MG/20 ML VIAL ONE (09:00)
[2019-09-23] MEDS ORDERED: Lidocaine 1% PF 5 ML VIAL ONE (09:00)
[2019-09-23] MEDS ORDERED: Glycopyrrolate 0.2 MG/ML 5 ML SYRINGE ONE (09:00)
[2019-09-23] MEDS ORDERED: Ondansetron PF 4 MG/2 ML Vial ONE (09:00)
[2019-09-23] MEDS ORDERED: PHENYLEPHRINE-NS 100 MCG/ML 10 ML SYRINGE ONE (09:00)
[2019-09-23] MEDS ORDERED: EPHEDRINE 25 MG/5 ML SYRINGE ONE (09:00)
[2019-09-23] MEDS: Calcium Acetate 667 MG CAP PO SCH ×3 (09:08→18:18)
[2019-09-23] MEDS: Aspirin 81 mg Enteric Coated Tablet PO SCH (09:08)
[2019-09-23] MEDS: Calcium Carbonate 500 MG ChewTAB PO SCH ×4 (09:09→20:16)
[2019-09-23] MEDS: Bupropion 150 MG XL TAB PO SCH (09:09)
[2019-09-23] MEDS: Carvedilol 6.25 MG TAB PO SCH ×2 (09:09→20:15)
[2019-09-23] MEDS: Losartan 25 MG TAB PO SCH (09:09)
[2019-09-23] MEDS: Tamsulosin HCl 0.4 MG CAP PO SCH (09:10)
--- NOTE | 2019-09-23 10:11 | CT ---
EXAM: CT angiogram head and neck with IV contrast and 3-D reconstruction PROVIDED CLINICAL HISTORY: Level 1 stroke alert. Right-sided facial droop and slurred speech. COMPARISON: None FINDINGS: Vascular calcifications are seen in the aortic arch. There is a common origin of the innominate arter y and left common carotid artery. Otherwise, there is a normal arrangement of the great vessels at the aortic arch which are patent. Atherosclerotic calcifications are seen within the great vessels. T he left subclavian artery is patent. Portion of the right subclavian artery is obscured due to dense contrast in the subclavian vein. The right common carotid artery is patent with mild atherosclerotic plaque and calcifications present . Eccentric atherosclerotic plaque is seen within the distal left common carotid artery with luminal narrowing approaching 50%. The bilateral internal carotid arteries are patent. Each internal carotid artery deviates medially at the level of the C2-3 level. A prominent kink is present within the right internal carotid artery secondary to the tortuosity, but no focal significant stenosis is seen in either internal carotid art yulisa. Atherosclerotic calcifications are seen at the origin of the right vertebral artery, but the vertebra l arteries are otherwise patent and codominant bilaterally. The basilar artery and posterior cerebral arteries are patent bilaterally. Atherosclerotic irregularity is seen in the internal carotid arteries and the carotid siphons greater on the right with mild degrees of narrowing present. The bilateral middle cerebral and anterior cerebral arteries are patent. Anterior communication artery is visualized and patent. No focal stenos is or branch occlusion is seen. No intracranial aneurysm is seen within the limitations of the technique of this examination. There is incomplete visualization of a moderate-sized right pleural effusion and atelectasis in the v isualized upper lung zones. There is a mildly enlarged right paratracheal lymph node measuring 11 mm in short axis dimension which is overall nonspecific. Multilevel degenerative changes are seen in the cervical spine. Minimal mucosal thickening is seen in each maxillary antrum. There is a minimal defect in the right m edial orbital wall which may be developmental in origin. Mastoid air cells are clear. IMPRESSION: 1. Eccentric atherosclerotic plaque seen in the left common carotid artery resulting in luminal narro wing which approaches 50%. 2. Patent bilateral internal carotid arteries with mild atherosclerotic irregularity in the region of the carotid siphons. 3. Patent bilateral vertebral arteries. 4. No focal stenosis or branch occlusion is seen involving the [place] or vertebrobasilar sy stem. 5. Partially visualized moderate size right pleural effusion. 6. Nonspecific mildly enlarged right paratracheal lymph node. 7. Above findings discussed with Dr. Riggs in the emergency department on 09/21/2019 at 0851 hours. Transcribed Date/Time: 09/23/2019 10:11 AM
--- NOTE | 2019-09-23 10:17 | PRG ---
DATE OF SERVICE: 09/23/2019 I reviewed the notes of my colleague, Mendy Hartman PA-C, and agrees with its content. Mr. Araiza is a 74-year-old man, admitted for 2 weeks of paraparesis with difficulty walking. 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 He has a history of a prior L4 surgery. 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 We arranged for a TLSO clamshell and I have recommended surgery, given his neurologic deficit outlined in my colleague, MsAnselmo Hartman' noted along with urinary incontinence and in particular difficulty ambulate. As such, we will arrange for L1-L2 laminectomy for epidural abscess evacuation, decompression of the conus medullaris, and L2-L3 laminectomy and partial facetectomy for his long-standing spondylitic severe stenosis. Job ID: [id number]
[2019-09-23] MEDS: NIFEdipine XL 60 MG TAB PO SCH (12:10)
[2019-09-23] MEDS ORDERED: Thrombin 5000 UNITS/5 ML VIAL ONE (13:13)
[2019-09-23] MEDS ORDERED: Fentanyl 100 MCG/2 ML VIAL ONE ×2 (13:17→16:59)
[2019-09-23] MEDS ORDERED: HYDROmorphone 0.5 MG/0.5 ML SYRINGE ONE ×2 (13:17→13:18)
[2019-09-23] MEDS ORDERED: Clindamycin/D5W 900 mg/50 ml Premix Bag ONE (13:39)
[2019-09-23] MEDS ORDERED: SUGAMMADEX SODIUM 200 MG/2 ML VIAL ONE (16:16)
--- NOTE | 2019-09-23 16:59 | PRG ---
DATE OF SERVICE: 09/23/2019 SUBJECTIVE: The patient now had progression of his neurological dysfunction. Dr. Dangelo had performed a decompressive surgery, and I do not have yet the report. OBJECTIVE: The vital signs are stable. He is afebrile. The exam is unchanged. LABORATORY DATA: White cell count 7.1, hemoglobin 11, and platelets 163. BUN and creatinine 4.46. Cultures still with only one set with coagulase-negative Staph, likely contaminant. ASSESSMENT AND DISCUSSION: End-stage renal disease of uncertain etiology, on hemodialysis with tunneled catheter in the right internal jugular position with exacerbation of low back pain with infection of L1-L2, extension to bone, epidural space with moderate to severe compression, status post decompressive surgery by Dr. Dangelo. Continue on sliding scale, vancomycin, and quinolone, adjusted for renal function. Follow up results of cultures and then adjust therapy accordingly. Job ID: [id number]
[2019-09-23] MEDS: Atorvastatin Calcium 40 MG TAB PO SCH (20:14)
[2019-09-23] MEDS: traZODone HCl 50 MG TAB PO SCH (20:15)
[2019-09-23] MEDS: Pramipexole Di-HCl 0.25 MG TAB PO SCH (20:15)
[2019-09-23] MEDS: Clindamycin/D5W 900 MG in Premix Bag 1 BAG IVPB SCH (21:29)
[2019-09-24] MEDS: HYDROcodone/Acetaminophen 7.5/325 mg Tablet PO PRN ×3 (00:15→19:41)
[2019-09-24] MEDS: tiZANidine HCl 4 MG TAB PO PRN ×3 (01:03→22:31)
[2019-09-24] MEDS: Morphine 2 MG/ML SYRINGE SLOW IVP PRN ×4 (01:06→12:37)
[2019-09-24] MEDS: Clindamycin/D5W 900 MG in Premix Bag 1 BAG IVPB SCH (05:06)
[2019-09-24] MEDS: hydrALAZINE 20 MG/ML VIAL SLOW IVP PRN ×2 (05:17→11:45)
[2019-09-24 05:20] LABS: #Lymphocytes 0.9 thou/uL (1.20-3.40); #Monocytes 0.8 thou/uL (0.11-0.59); #Neutrophils 10.3 thou/uL (1.40-6.50); %Basophils 0.1 % (0.0-1.0); %Eosinophils 0.1 % (0.0-10.0); %Lymphocytes 7.5 % (21.0-51.0); %Monocytes 6.9 % (0.0-10.0); %Neutrophils 85.4 % (42.0-75.0); Hemoglobin 11.9 g/dL (14.0-18.0); Mean Corpuscular HGB CONC 32.6 g/dL (32.0-36.0); Mean Corpuscular Hemoglobin 32.4 pg (27.0-31.0); Mean Corpuscular Volume 99.3 fL (78.0-98.0); Platelet Count 188 thou/uL (130-400); RBC Distribution Width 16.3 % (11.5-14.5); Red Blood Cell (RBC) Count 3.68 mill/uL (4.70-6.10); White Blood Cell (WBC) Count 12.1 thou/uL (4.8-10.8)
[2019-09-24 05:41] LABS: Anion Gap 17 mmol/L (10-20); BUN (Urea Nitrogen) 26 mg/dL (8.4-25.7); Calc. Creatinine Clearance 11 mL/min (70-130); Calcium 9.1 mg/dL (7.8-10.44); Carbon Dioxide 23 mmol/L (23-31); Chloride 96 mmol/L (98-107); Estimated GFR-MDRD 9; Glucose 85 mg/dL (83-110); Potassium 5.8 mmol/L (3.5-5.1); Sodium 130 mmol/L (136-145)
[2019-09-24] MEDS: Carvedilol 6.25 MG TAB PO SCH ×2 (08:14→19:32)
[2019-09-24] MEDS: Calcium Acetate 667 MG CAP PO SCH ×3 (08:14→17:02)
[2019-09-24] MEDS: Bupropion 150 MG XL TAB PO SCH (08:15)
[2019-09-24] MEDS: Calcium Carbonate 500 MG ChewTAB PO SCH ×4 (08:15→19:41)
[2019-09-24] MEDS: Losartan 25 MG TAB PO SCH (08:15)
[2019-09-24] MEDS: Tamsulosin HCl 0.4 MG CAP PO SCH (08:15)
[2019-09-24] MEDS ORDERED: Heparin 10,000 UNITS/ 10 ML VIAL ONE (08:33)
--- NOTE | 2019-09-24 09:26 | PDOC.HOSPP ---
- Subjective Encounter Date: 09/24/19 Encounter Time: 16:00 Subjective: Patient reports that low back pain markedly improved. Legs still weak. Had some Nausea and vomiting this AM, better after zofran. - Objective Vital Signs & Weight: Vital Signs (12 hours) Temp Pulse Resp BP BP Pulse Ox 09/24/19 08:14 151/84 H 09/24/19 07:59 98.1 F 85 14 151/84 H 97 09/24/19 06:43 149/79 H 09/24/19 05:17 81 09/24/19 04:00 98.5 F 80 16 172/88 H 96 09/24/19 00:00 97.6 F 81 17 154/55 H 97 Weight Admit Weight 157 lb 11.2 oz Weight 157 lb 11.2 oz I&O: 09/23/19 09/24/19 09/25/19 06:59 06:59 06:59 Intake Total 300 Output Total 85 Balance 215 Result Diagrams: 09/24/19 05:05 09/24/19 05:05 Additional Labs: Accuchecks 09/23/19 09/23/19 09/23/19 20:24 18:37 10:57 POC Glucose 201 H 131 H 83 Hospitalist ROS - Review of Systems Constitutional: denies: fever, chills Respiratory: denies: cough, shortness of breath Cardiovascular: denies: chest pain, palpitations Gastrointestinal: reports: nausea, vomiting. denies: abdominal pain Musculoskeletal: reports: back pain Neurological: reports: weakness - Medication Medications: Active Medications Generic Name Dose Route Start Last Admin Trade Name Freq PRN Reason Stop Dose Admin Acetaminophen 650 mg 09/21/19 09:57 09/23/19 04:17 Tylenol PO 650 mg Q4H PRN Administration Headache/Fever/Mild Pain (1-3) Hydrocodone Bitart/Acetaminophen 1 tab 09/22/19 07:20 09/24/19 08:12 [place] 7.5/325 PO 1 tab Q8H PRN Administration Pain Atorvastatin Calcium 40 mg 09/21/19 21:00 09/23/19 20:14 Lipitor PO 40 mg HS ELPIDIO Administration Bupropion HCl 300 mg 09/22/19 09:00 09/24/19 08:15 Wellbutrin Xl PO 300 mg QAM ELPIDIO Administration Calcium Acetate 1,334 mg 09/21/19 12:00 09/24/19 08:14 Phoslo PO 1,334 mg TID-WM ELPIDIO Administration Calcium Carbonate 500 mg 09/21/19 13:00 09/24/19 08:15 Tums PO 500 mg QID ELPIDIO Administration Carvedilol 6.25 mg 09/22/19 09:00 09/24/19 08:14 Coreg PO 6.25 mg BID [facility] Administration Cholecalciferol 1,000 units 09/22/19 09:00 09/24/19 08:15 Vitamin D3 PO 1,000 units DAILY [facility] Administration Hydralazine HCl 10 mg 09/23/19 07:16 09/24/19 05:17 Apresoline SLOW IVP 10 mg Q15MIN PRN Administration SBP >160 or DBP >100 Levofloxacin 250 mg 09/23/19 06:00 09/24/19 05:20 Levaquin PO 250 mg 0600 [facility] Administration Losartan Potassium 100 mg 09/22/19 09:00 09/24/19 08:15 Cozaar PO 100 mg DAILY [facility] Administration Memantine 5 mg 09/21/19 21:00 09/24/19 08:15 Namenda PO 5 mg BID [facility] Administration Morphine Sulfate 2 mg 09/23/19 18:15 09/24/19 05:12 Morphine SLOW IVP 2 mg Q1H PRN Administration Severe Pain (7-10) Nifedipine 60 mg 09/22/19 12:00 09/23/19 12:10 Procardia Xl PO 60 mg 1200 [facility] Administration Pramipexole Dihydrochloride 0.25 mg 09/21/19 21:00 09/23/19 20:15 Mirapex PO 0.25 mg HS [facility] Administration Senna/Docusate Sodium 2 tab 09/21/19 09:57 09/24/19 08:14 Senokot S PO 2 tab BID PRN Administration Constipation Sodium Chloride 10 ml 09/21/19 09:51 09/22/19 09:15 Flush - Normal Saline IVF 10 ml PRN PRN Administration Saline Flush Tamsulosin HCl 0.4 mg 09/22/19 09:00 09/24/19 08:15 Flomax PO 0.4 mg QAM ELPIDIO Administration Tizanidine HCl 4 mg 09/23/19 18:15 09/24/19 01:03 Zanaflex PO 4 mg TID PRN Administration Muscle Spasm Trazodone HCl 100 mg 09/21/19 21:00 09/23/19 20:15 Desyrel PO 100 mg HS ELPIDIO Administration - Exam General Appearance: NAD, awake alert ENT: moist mucosa Heart: RRR, no murmur, no gallops, no rubs Respiratory: CTAB, no wheezes, no rales, no ronchi Gastrointestinal: soft, non-tender, non-distended, normal bowel sounds Psychiatric: normal affect, normal behavior, A&O x 3 Hosp A/P (1) Osteomyelitis of lumbar spine Code(s): M46.26 - OSTEOMYELITIS OF VERTEBRA, LUMBAR REGION Status: Acute (2) Abscess in epidural space of lumbar spine Code(s): G06.1 - INTRASPINAL ABSCESS AND GRANULOMA Status: Acute (3) Lumbar spinal stenosis Code(s): M48.061 - SPINAL STENOSIS, LUMBAR REGION WITHOUT NEUROGENIC CHINYERE Status: Acute (4) TIA (transient ischemic attack) Code(s): G45.9 - TRANSIENT CEREBRAL ISCHEMIC ATTACK, UNSPECIFIED Status: Ruled -out (5) Hypertensive urgency Code(s): I16.0 - HYPERTENSIVE URGENCY Status: Resolved (6) Hypoglycemia Code(s): E16.2 - HYPOGLYCEMIA, UNSPECIFIED Status: Resolved (7) ESRD (end stage renal disease) on dialysis Code(s): N18.6 - END STAGE RENAL DISEASE; Z99.2 - DEPENDENCE ON RENAL DIALYSIS Status: Chronic (8) H/O alcohol abuse Code(s): Z87.898 - PERSONAL HISTORY OF OTHER SPECIFIED CONDITIONS Status: Chronic (9) HTN (hypertension) Code(s): I10 - ESSENTIAL (PRIMARY) HYPERTENSION Status: Chronic Qualifiers: Hypertension type: essential hypertension Qualified Code(s): I10 - Essential (primary) hypertension - Plan CVA ruled out with MRI brain. Weakness mostly in bilateral legs, worsening for 2 weeks with worsening low back pain. MRI lumbar spine with osteomyelitis, disciitis, epidural abscess, and severe spinal stenosis. Neurosurgery decompressed and drained 09/23/2019, report pending, cultures taken Dr. Contreras consulted, appreciate his assistance. Vancomycin and Levaquin since Nephrology managing dialysis. Hyperkalemic this AM. PT/OT DVT Proph: SCDs, no Enoxaparin due to ESRD
--- NOTE | 2019-09-24 10:09 | PRG ---
DATE OF SERVICE: 09/24/2019 Mr. Araiza is postoperative day #1 from L1-L2 laminectomy for epidural abscess, sampling ventrally and decompression of the conus medullaris along with L2-L3 laminectomy, partial facetectomy, foraminotomies for cauda equina decompression. He states his leg pain is certainly improved. His exam remains unchanged with weakness throughout multiple lower extremity myotomes. We will begin to mobilize him. We have ordered a clamshell brace to be worn when only when he is out of bed, pleased with how he is doing at this point. His cultures remain negative. He is on antibiotics. He will undergo dialysis today. Job ID: [id number]
[2019-09-24] MEDS: NIFEdipine XL 60 MG TAB PO SCH (11:32)
--- NOTE | 2019-09-24 11:46 | OP ---
DATE OF PROCEDURE: 09/23/2019 Modifier 57 should be added to this surgery as the decision to operate was made on the day I saw the patient. CAREER GUIDANCE COUNSELOR: Mendy Hartman PA-C PREPROCEDURE DIAGNOSES: 1. Lumbar ventral epidural abscess with osteodiskitis, L1-L2 with conus medullaris syndrome. 2. L2-L3 spondylosis, degenerative with severe stenosis. POSTPROCEDURE DIAGNOSES: 1. Lumbar ventral epidural abscess with osteodiskitis, L1-L2 with conus medullaris syndrome. 2. L2-L3 spondylosis, degenerative with severe stenosis. PROCEDURES PERFORMED: 1. L1-L2 laminectomy for decompression of the cauda equina and conus medullaris with sampling for culture and sensitivity of L1-L2 bone and ventral epidural phlegmon and tissue. 2. L2-L3 laminectomy, partial facetectomy, and foraminotomy for decompression of cauda equina. DESCRIPTION OF PROCEDURE: After informed consent was obtained from the patient, the patient was brought to the OR. Proper patient, pause, and identification were carried out. He was placed under excellent general endotracheal anesthesia and positioned prone on the OR table. All appropriate points were padded. We identified the L1, L2, and L3 segments. Linear irina was made over this region. He had a prior L4 incision from a remote surgery. After proper patient, pause, and identification, L1, L2, and L3 wound was opened and the spinous processes and lamina were exposed. There was no gross evidence of infection. L1-L2 laminectomy, partial facetectomy, and foraminotomy were performed for decompression of the common dural tube. The bone was sent for culture and sensitivity, and we also sent ventral epidural tissue that appeared to be abnormal, likely phlegmon. I then turned my attention to L2-L3 laminectomy, partial facetectomy, and foraminotomies with decompression of common dural tube and nerve roots. Copious irrigation occurred throughout as did maximizing hemostasis. There was no spinal fluid leak. The wound was then closed in anatomic layers following sprinkling of vancomycin powder. The patient emerged from anesthesia. Job ID: [id number]
[2019-09-24] MEDS ORDERED: Ondansetron ODT 4 MG TAB PO PRN (13:12)
[2019-09-24] MEDS ORDERED: Ondansetron PF 4 MG/2 ML Vial IVP PRN (13:12)
--- NOTE | 2019-09-24 16:57 | PRG ---
DATE OF SERVICE: 09/24/2019 SUBJECTIVE: Mr. Araiza is a 74-year-old male, followed up by the [facility] for his hemodialysis. He is undergoing hemodialysis today. Trying to avoid heparin with him. Mr. Araiza recently had L1-L2 laminectomy for epidural abscess. There was decompression of the conus medullaris. There was also cauda equina decompression. He is doing well. No other complaints today. OBJECTIVE: VITAL SIGNS: Blood pressure 126/75, heart rate 84, respiratory rate 18. GENERAL: Awake, alert, comfortable, not in overt distress. SKIN: Adequate turgor. HEENT: Pinkish conjunctivae. Anicteric sclerae. NECK: No neck mass. No carotid bruits. No JVD. CHEST: No deformities. LUNGS: Clear breath sounds. HEART: Normal sinus rhythm. No murmur. No gallops. No rubs. ABDOMEN: Globular, soft, nontender. No masses. EXTREMITIES: No edema. No deformities. MEDICATIONS: Medications of September 24, 2019, reviewed. LABORATORY DATA: Laboratories of September 24, 2019, showed white count was 12.1, hemoglobin 11.9. Sodium 130, potassium 5.8, chloride 96, carbon dioxide 23, BUN 26, creatinine 6.16, calcium 9.1, glucose 85. ASSESSMENT AND PLAN: 1. End-stage renal disease, stable. We will continue current heparin-free hemodialysis. No heparin use as much as possible due to the recent back surgery. 2. Epidural abscess-status post laminectomy on empiric IV antibiotics-currently on clindamycin. Agree with current management. So far, the patient is tolerating his current hemodialysis regimen. Job ID: [id number]
--- NOTE | 2019-09-24 18:43 | PRG ---
DATE OF SERVICE: 09/24/2019 SUBJECTIVE: Fabian Araiza feeling better, less pain. No respiratory symptoms. No vomiting. No abdominal pain. T-max 98.5, blood pressure 120/70, pulse 84, respirations 16. The patient had decompressive surgery with Dr. Dangelo. Operative report was reviewed and the patient had a lumbar ventral epidural abscess with osteodiskitis, L1-L2 with conus medullaris syndrome. No actual pus was found, just a sort of the usual thickened fatty tissue compressing the spinal cord. OBJECTIVE: LUNGS: Clear. HEART: S1 and S2, regular rate. ABDOMEN: Soft, not distended or tender. EXTREMITIES: Moves extremities equally. Pretty good strength. LABORATORY DATA: White cell count is 12.1, hemoglobin 11.9, platelets 188. Creatinine 6.16. Microbiology with coagulase-negative Staph in blood cultures samples. Thus far, no growth at 12 hours kind of early. We will hope that something is retrieved from the site. ASSESSMENT AND DISCUSSION: End-stage renal disease of uncertain etiology, on hemodialysis with tunneled catheter in the right IJ position. Progressive low back pain with L1-L2 diskitis with extension to the epidural space, status post decompressive surgery by Dr. Dangelo. We will wait on the results of the cultures. Hopefully cultures will allow us to target the antimicrobial therapy more precisely. Job ID: [id number] [facility]
[2019-09-24] MEDS: Pramipexole Di-HCl 0.25 MG TAB PO SCH (19:41)
[2019-09-24] MEDS: traZODone HCl 50 MG TAB PO SCH (19:41)
[2019-09-24] MEDS: Atorvastatin Calcium 40 MG TAB PO SCH (19:41)
[2019-09-25] MEDS: HYDROcodone/Acetaminophen 7.5/325 mg Tablet PO PRN ×2 (03:09→13:20)
[2019-09-25] MEDS: tiZANidine HCl 4 MG TAB PO PRN ×2 (06:20→17:22)
[2019-09-25] MEDS: Calcium Acetate 667 MG CAP PO SCH ×3 (08:48→17:19)
[2019-09-25] MEDS: Carvedilol 6.25 MG TAB PO SCH (08:49)
[2019-09-25] MEDS: Bupropion 150 MG XL TAB PO SCH (08:49)
[2019-09-25] MEDS: Calcium Carbonate 500 MG ChewTAB PO SCH ×3 (08:49→17:19)
[2019-09-25] MEDS: Tamsulosin HCl 0.4 MG CAP PO SCH (08:52)
[2019-09-25] MEDS: Losartan 25 MG TAB PO SCH (08:54)
--- NOTE | 2019-09-25 09:29 | PRG ---
DATE OF SERVICE: 09/25/2019 Mr. Araiza is doing well postoperative day #2 following lumbar decompression and epidural abscess indirect decompression. Cultures remain from intraoperative assessment negative. Remains on antibiotics. He has been afebrile. He again does feel as if he is doing better in regard to his pain. He needs to mobilize. Job ID: [id number]
--- NOTE | 2019-09-25 10:43 | PDOC.HOSPP ---
- Subjective Encounter Date: 09/25/19 Encounter Time: 10:10 Subjective: Patient just back from PT ambulated a few feet. Pain in back today, better with ambulation. No fever or systemic symptoms. - Objective Vital Signs & Weight: Vital Signs (12 hours) Temp Pulse Resp BP BP Pulse Ox 09/25/19 08:49 116/74 09/25/19 00:00 97.8 F 90 18 107/70 95 Weight Admit Weight 157 lb 11.2 oz Weight 157 lb 11.2 oz I&O: 09/24/19 09/25/19 09/26/19 06:59 06:59 06:59 Intake Total 300 597 Output Total 85 50 Balance 215 547 Result Diagrams: 09/24/19 05:05 09/24/19 05:05 Additional Labs: Accuchecks 09/25/19 09/24/19 09/24/19 03:12 18:00 10:47 POC Glucose 147 H 90 116 H Hospitalist ROS - Review of Systems Constitutional: denies: fever, chills Respiratory: denies: cough, shortness of breath Cardiovascular: denies: chest pain, palpitations, orthopnea Gastrointestinal: denies: nausea, vomiting, abdominal pain Musculoskeletal: reports: back pain Neurological: reports: weakness - Medication Medications: Active Medications Generic Name Dose Route Start Last Admin Trade Name Freq PRN Reason Stop Dose Admin Acetaminophen 650 mg 09/21/19 09:57 09/23/19 04:17 Tylenol PO 650 mg Q4H PRN Administration Headache/Fever/Mild Pain (1-3) Hydrocodone Bitart/Acetaminophen 1 tab 09/22/19 07:20 09/25/19 03:09 [place] 7.5/325 PO 1 tab Q8H PRN Administration Pain Atorvastatin Calcium 40 mg 09/21/19 21:00 09/24/19 19:41 Lipitor PO 40 mg HS ELPIDIO Administration Bupropion HCl 300 mg 09/22/19 09:00 09/25/19 08:49 Wellbutrin Xl PO 300 mg QAM ELPIDIO Administration Calcium Acetate 1,334 mg 09/21/19 12:00 09/25/19 08:48 Phoslo PO 1,334 mg TID-WM ELPIDIO Administration Calcium Carbonate 500 mg 09/21/19 13:00 09/25/19 08:49 Tums PO 500 mg QID ELPIDIO Administration Carvedilol 6.25 mg 09/22/19 09:00 09/25/19 08:49 Coreg PO 6.25 mg BID ELPIDIO Administration Cholecalciferol 1,000 units 09/22/19 09:00 09/25/19 08:51 Vitamin D3 PO 1,000 units DAILY ELPIDIO Administration Hydralazine HCl 10 mg 09/23/19 07:16 09/24/19 11:45 Apresoline SLOW IVP 10 mg Q15MIN PRN Administration SBP >160 or DBP >100 Vancomycin HCl 750 mg/ Sodium 250 mls @ 250 mls/hr 09/22/19 12:15 09/24/19 16 :13 Chloride IVPB 250 mls WILLCALL ELPIDIO Administration Levofloxacin 250 mg 09/23/19 06:00 09/25/19 03:09 Levaquin PO 250 mg 0600 ELPIDIO Administration Losartan Potassium 100 mg 09/22/19 09:00 09/25/19 08:54 Cozaar PO Not Given DAILY [facility] Memantine 5 mg 09/21/19 21:00 09/25/19 08:52 Namenda PO 5 mg BID ELPIDIO Administration Morphine Sulfate 2 mg 09/23/19 18:15 09/24/19 12:37 Morphine SLOW IVP 2 mg Q1H PRN Administration Severe Pain (7-10) Nifedipine 60 mg 09/22/19 12:00 09/24/19 11:32 Procardia Xl PO 60 mg 1200 ELPIDIO Administration Pramipexole Dihydrochloride 0.25 mg 09/21/19 21:00 09/24/19 19:41 Mirapex PO 0.25 mg HS ELPIDIO Administration Senna/Docusate Sodium 2 tab 09/21/19 09:57 09/24/19 08:14 Senokot S PO 2 tab BID PRN Administration Constipation Sodium Chloride 10 ml 09/21/19 09:51 09/22/19 09:15 Flush - Normal Saline IVF 10 ml PRN PRN Administration Saline Flush Tamsulosin HCl 0.4 mg 09/22/19 09:00 09/25/19 08:52 Flomax PO 0.4 mg QAM ELPIDIO Administration Tizanidine HCl 4 mg 09/23/19 18:15 09/25/19 06:20 Zanaflex PO 4 mg TID PRN Administration Muscle Spasm Trazodone HCl 100 mg 09/21/19 21:00 02/26/20 19:41 Desyrel PO 100 mg HS ELPIDIO Administration - Exam General Appearance: NAD, awake alert ENT: moist mucosa Heart: RRR, no murmur, no gallops, no rubs Respiratory: CTAB, no wheezes, no rales, no ronchi Gastrointestinal: soft, non-tender, non-distended, normal bowel sounds Musculoskeletal - other findings: clamshell brace in place, sitting up in bed with PT Psychiatric: normal affect, normal behavior, A&O x 3 Hosp A/P (1) Osteomyelitis of lumbar spine Code(s): M46.26 - OSTEOMYELITIS OF [place], LUMBAR REGION Status: Acute (2) Abscess in epidural space of lumbar spine Code(s): G06.1 - INTRASPINAL ABSCESS AND GRANULOMA Status: Acute (3) Lumbar spinal stenosis Code(s): M48.061 - SPINAL STENOSIS, LUMBAR REGION WITHOUT NEUROGENIC CHINYERE Status: Acute (4) TIA (transient ischemic attack) Code(s): G45.9 - TRANSIENT CEREBRAL ISCHEMIC ATTACK, UNSPECIFIED Status: Ruled -out (5) Hypertensive urgency Code(s): I16.0 - HYPERTENSIVE URGENCY Status: Resolved (6) Hypoglycemia Code(s): E16.2 - HYPOGLYCEMIA, UNSPECIFIED Status: Resolved (7) ESRD (end stage renal disease) on dialysis Code(s): N18.6 - END STAGE RENAL DISEASE; Z99.2 - DEPENDENCE ON RENAL DIALYSIS Status: Chronic (8) H/O alcohol abuse Code(s): Z87.898 - PERSONAL HISTORY OF OTHER SPECIFIED CONDITIONS Status: Chronic (9) HTN (hypertension) Code(s): I10 - ESSENTIAL (PRIMARY) HYPERTENSION Status: Chronic Qualifiers: Hypertension type: essential hypertension Qualified Code(s): I10 - Essential (primary) hypertension - Plan CVA ruled out with MRI brain. Weakness mostly in bilateral legs, worsening for 2 weeks with worsening low back pain. MRI lumbar spine with osteomyelitis, disciitis, epidural abscess, and severe spinal stenosis. Neurosurgery decompressed and drained 09/23/2019, report pending, cultures taken Dr. Contreras consulted, appreciate his assistance. Vancomycin and Levaquin since Nephrology managing dialysis. PT/OT To rehab once plan for abx and cleared by Neurosurgery. DVT Proph: SCDs, no Enoxaparin due to ESRD
[2019-09-25] MEDS: NIFEdipine XL 60 MG TAB PO SCH (12:58)
--- NOTE | 2019-09-25 17:57 | PRG ---
DATE OF SERVICE: 09/25/2019 SUBJECTIVE: Mr. Araiza is having some problems with intermittent nausea, and anorexia. Has not had a bowel movement in a couple of days. No respiratory symptoms, and the back pain has improved. Still good strength in the lower extremities. OBJECTIVE: VITAL SIGNS: Essentially normal. O2 saturations are little bit decreased. GENERAL: Awake, alert, and oriented, in no distress. HEENT: Extraocular movements conjugate. LUNGS: Clear. HEART: S1 and S2, regular rate. ABDOMEN: Soft, not distended. The incision area appears okay. LABORATORY DATA: White cell count 12.1, hemoglobin 11.9, platelets 188. Sodium 130, creatinine 6.16. Random vancomycin was 14 on September 24, which is adequate and close to. Cultures are still pending. I do not have the actual organism identified, but there appears to be some growth in some of the samples. MEDICATIONS: He is currently on PhosLo, hydralazine, levofloxacin, vancomycin sliding scale, tamsulosin, trazodone. ASSESSMENT AND DISCUSSION: End-stage renal disease of uncertain etiology, on hemodialysis with tunneled catheter in the right IJ position. Progressive low back pain with L1-L2 diskitis and extension through the epidural space, status post decompressive surgery. Cultures are still without any yield. Hopefully, there might be something identified soon to allow us to target the antimicrobial therapy more precisely. Job ID: [id number] MTDD
[2019-09-25 20:22] VITALS: BP 118/73; TEMP 98.5
== END 2019-09-25 20:08 | disposition home or self-care (01) | DRG 40 ==
LOC: ERS 08:14 → 2SE 13:19 → SURG A 09-23 16:02 → SURG B 09-23 18:09
PROVIDERS: ADMIT Internal Medicine; ATTEND Emergency Medicine
PROC: 5A1D70Z Performance of Urinary Filtration, Intermittent, Less than 6 Hours Per Day (ICD-10-PCS; 2019-09-22)
PROC: 01NB0ZZ Release Lumbar Nerve, Open Approach (ICD-10-PCS; principal; 2019-09-23)
DX: G06.1 Intraspinal abscess and granuloma (principal); N18.6 End stage renal disease; M46.26 Osteomyelitis of vertebra, lumbar region; G45.9 Transient cerebral ischemic attack, unspecified; I13.2 Hypertensive heart and chronic kidney disease with heart failure and with stage 5 chronic kidney disease, or end stage renal disease; M51.06 Intervertebral disc disorders with myelopathy, lumbar region; G82.20 Paraplegia, unspecified; E78.5 Hyperlipidemia, unspecified; I16.0 Hypertensive urgency; E16.2 Hypoglycemia, unspecified; M48.061 Spinal stenosis, lumbar region without neurogenic claudication; M51.16 Intervertebral disc disorders with radiculopathy, lumbar region; R32 Unspecified urinary incontinence; F41.9 Anxiety disorder, unspecified; F32.9 Major depressive disorder, single episode, unspecified; I50.9 Heart failure, unspecified; F10.10 Alcohol abuse, uncomplicated; I25.10 Atherosclerotic heart disease of native coronary artery without angina pectoris; E03.9 Hypothyroidism, unspecified; G20 Parkinson's disease; F02.80 Dementia in other diseases classified elsewhere, unspecified severity, without behavioral disturbance, psychotic disturbance, mood disturbance, and anxiety; Z99.2 Dependence on renal dialysis; Z95.5 Presence of coronary angioplasty implant and graft; Z79.899 Other long term (current) drug therapy
CPT/HCPCS: 36415; 36416; 70450; 70496; 70498; 70551; 71045; 72100; 72148; 76000; 80048; 80053; 80061; 80202; 80307; 82550; 82553; 83690; 83735; 84145; 84443; 84484; 85025; 85610; 85730; 87040; 87070; 87149; 87205; 90471; 90662; 93005; 93306; G0008; J0360; J1100; J1170; J1644; J2001; J2270; J2405; J2704; J3010; J3370; J3490; J7050; Q9967